=== PATIENT | female | born 1955 | race Caucasian/White ===

== ENCOUNTER 2016-12-29 19:06 | Emergency (ER) | payer MEDICAID ==
[~2016-12-29] VITALS: Ht 160 cm; Wt 96.2 kg
[~2016-12-29 19:06] MED LIST: ACETAMINOPHEN-H1 TA2 PO; ALBUTEROL SULF0.5 ML IH; ALBUTEROL-200 PUFFS/ IH; APAP/BUTALBITAL1 TA1 PO; ASPIR 8181 MG PO; ASPIRIN 325MG325 MG PO; ASPIRIN EC325 M1 PO; BUSPAR 10MG TAB10 MG PO; CEPHALEXIN500 MG PO; CIPRO 500MG TA500 MG PO; COLACE GENERIC100 MG PO; COMBIVENT1 ARO IH; EFFIENT10 M1 PO; FIORICET 325 MG1 TAB PO; FLEXERIL5 MG PO; GABAPENTIN300 MG PO; IMDUR 30MG. TAB30 MG PO; IMDUR120 MG PO; KEFLEX 500MG.500 MG PO; LIPITOR40 MG PO; LIPITOR80 M1 PO; LISINOPRIL10 MG PO; LORTAB 5/500 501 TAB PO; LORTAB 500 MG-71 TAB PO; MEDROL 4MG. DOSE4 MG PO; METOPROLOL SUCC50 M4 PO; METOPROLOL TART50 MG PO; MOTRIN 600MG.600 MG PO; NITROSTAT0.4 MG SL; NORCO 325 MG-51 TAB PO; PERCOCET 325 MG1 TA4 PO; PLAVIX 75MG TAB75 MG PO; PRAVASTATIN40 MG PO; PREDNISONE 20MG20 MG PO; PRILOSEC20 M1 PO; PROZAC20 MG PO; RANEXA1000 MG PO; SYMBICORT1 AE1 IH; TESSALON PERLE100 M1 PO; TORADOL10 M2 PO; TORADOL10 MG PO; TYLENOL W/CODEI1 TA2 PO; ZITHROMAX TRI-500 M1 PO; ZOCOR20 MG PO; [UNRECOGNIZED DRUG - REMARK] OR
[2016-12-29] MEDS ORDERED: ALBUTEROL2.5 MG/NEB INH (19:18)
--- NOTE | 2016-12-29 20:51 | RADIOLOGY REPORT PS360 ---
KNEE-3 VIEWS-LT ORDERING PHYSICIAN : Tristian Rousseau MD PATIENT AGE: 61 years GENDER: Female INDICATION: PAIN- NO INJUR TECHNIQUE: 3 views right knee COMPARISON: FINDINGS No fracture nor dislocation. There is narrowing at the medial compartment reflecting degenerative changes. Mild sclerosis also seen about the slightly narrowed medial compartment. Early marginal osteophyte formation is most evident about the medial compartment as well. There is a small lucent area at the posterior aspect superior patella suspect for a small osteochondral defect.~ 3 mm size estimated.. MRI could further confirm if need be Moderate joint effusion noted at suprapatellar bursa ------ IMPRESSION: ----- [id number] osteoarthritic changes at the medial compartment Joint effusion suprapatella bursa. Also Question small 3 mm chondral defect posterior aspect suprapatella
[2016-12-29] MEDS ORDERED: PREDNISONE 20MG20 MG PO (21:04)
--- NOTE | 2016-12-29 21:05 | Emergency Room Report ---
History of Present Illness Time Seen by [id number] Presenting Problem in Triage Pt arrived:Walked Presenting Problem:Left knee pain that started today. No injury noted. Very tender behind the knee. 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 N Clinical Suspician of Infection? N Mental Status: 1 - Regular (Normal Baseline) Sepsis Risk:Low Sepsis Risk Have you (or family members/close friends) recently traveled outside the [place]? N If Yes, where/when: Have you had exposure to infectious disease within the past month? N TB? Other? Specify: Source patient, RN notes reviewed, old records Exam Limitations no limitations Comment atraumatic lt knee pain which started today with no fever but pain with wt bearing and extension Cardiac Chest Pain Chest pain indicative of cardiac No Timing/Duration this evening Severity moderate ALLERGIES Coded Allergies: No Known Allergies (09/27/16) Home Medications Active Scripts Docusate Sodium (Colace 100MG Cap) 100 MG PO BID #60 CAP Prov: 06/06/16 Prednisone (Prednisone 20MG) 20 MG PO BID #10 TAB Prov: 09/27/16 HYDROCODONE/ACETAMINOPHEN ([place] 5-325 Tablet) 1 TAB PO Q6HP PRN pain #10 TAB Prov: 09/27/16 HYDROCODONE/ACETAMINOPHEN ([place] 5-325 Tablet) 1 TAB PO Q6HP PRN pain #10 TAB Prov: 10/31/16 Reported Medications Lisinopril 10 MG PO DAILY Gabapentin (Gabapentin 300MG) 600 MG PO QHS Fluoxetine Hcl (Prozac) 40 MG PO DAILY Aspirin (Aspirin EC 81MG Tab) 325 MG PO DAILY Isosorbide Mononitrate (Imdur) 150 MG PO DAILY Simvastatin (Zocor) 20 MG PO QHS Buspirone Hcl (Buspar 10MG) 10 MG PO DAILY Albuterol Sulfate (Albuterol Sulfate 0.5 Ml) 0.5 ML IH BID #360 Metoprolol Succinate (Metoprolol Succinate XL) 25 MG PO DAILY #30 ALBUTEROL (Albuterol 0.083% Neb) 2.5 MG INH QID History Medical History General CAD? Yes Angina: Yes [place]: No Hypertension? Yes Hyperlipidemia? Yes CHF? No DVT? No PE? No COPD? Yes Asthma? Yes Anemia? No GERD? Yes Gastric ulcers? No GI Bleed? No Hernia? Yes Thyroid Problems? No Hypothyroidism? No CVA? No Seizures? No Diabetes? No Insulin Dependent: No Insulin Pump: No Home FSBS? No Renal Insuffiency? No End Stage Renal Disease? No UTI? No Stones? No BPH? No GB Disease: No Nephritic Syndrome? No Asplenia? No Hepatitis? No Sickle Cell Disease? No Arthritis? Yes Migraines? Yes Cataracts? No Glaucoma? No MRSA? No HIV? No TB? No Anxiety? Yes Depression? Yes Cancer? No More? 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 Respiratory denies cough, denies shortness of breath, denies wheezing Cardiovascular denies chest pain, denies palpitations, denies syncope Gastrointestinal denies abdominal pain, denies diarrhea, denies vomiting Genitourinary denies: dysuria, frequency, hesitancy, hematuria. Musculoskeletal see HPI, denies back pain, joint pain, joint swelling, denies neck pain Skin denies rash Psychiatric/Neurological denies headache, denies seizure Physical Exam Vital Signs Vital Signs Date Time Temp Pulse Resp B/P Pulse O2 O2 Flow FiO2 Ox Delivery Rate 12/29 1911 99.1 75 18 132/77 95 - WBC >12,000 or <4,000 or 10% bands? 2 or more SIRS Criteria Met? B/P:132/77 MAP:95 Creatinine >2.0? UA output<0.5ml/kg/hr for 2 hrs? Platelet count >100,000? Lactate >2.0mmol/1? INR >1.2 or PTT > than 60 sec? Evidence of Organ Dysfunction? Provider documented clinical suspician of infection? N Sepsis Criteria Count: 0 Sepsis Risk: Low Sepsis Risk General Appearance no apparent distress Eye Exam - bilateral eye PERRL, bilateral eye EOMI Ear, Nose, Throat normal ENT inspection Neck supple Respiratory Status No: respiratory distress. 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 No XRAY/CT/US XRAY/CT/US XRAY knee XR interpretation by reviewed by me Xray Results no fracture seen, abnormal Departure Departure Time of Disposition 2057 Disposition DC Home or Self Care(routine) Clinical Impression Primary Impression: Knee arthropathy Condition STABLE Referrals Bryson Posadas MD Patient Instructions DI for Knee Pain Additional Instructions ice and wt bearing as joaquin and call pcp and ortho for follow up Discharge Counseling Counseled pt/family regarding diagnosis, test results, medications/RX, follow up needs Prescriptions Current Visit Scripts Prednisone (Prednisone 20MG) 20 MG PO BID #10 TAB ED Critical Care Critical Care No at 2104
--- NOTE | 2016-12-29 21:05 | Emergency Room Report ---
History of Present Illness Time Seen by [id number] Presenting Problem in Triage Pt arrived:Walked Presenting Problem:Left knee pain that started today. No injury noted. Very tender behind the knee. 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 N Clinical Suspician of Infection? N Mental Status: 1 - Regular (Normal Baseline) Sepsis Risk:Low Sepsis Risk Have you (or family members/close friends) recently traveled outside the [place]? N If Yes, where/when: Have you had exposure to infectious disease within the past month? N TB? Other? Specify: Source patient, RN notes reviewed, old records Exam Limitations no limitations Comment atraumatic lt knee pain which started today with no fever but pain with wt bearing and extension Cardiac Chest Pain Chest pain indicative of cardiac No Timing/Duration this evening Severity moderate ALLERGIES Coded Allergies: No Known Allergies (09/27/16) Home Medications Active Scripts Docusate Sodium (Colace 100MG Cap) 100 MG PO BID #60 CAP Prov: 06/06/16 Prednisone (Prednisone 20MG) 20 MG PO BID #10 TAB Prov: 09/27/16 HYDROCODONE/ACETAMINOPHEN ([place] 5-325 Tablet) 1 TAB PO Q6HP PRN pain #10 TAB Prov: 09/27/16 HYDROCODONE/ACETAMINOPHEN ([place] 5-325 Tablet) 1 TAB PO Q6HP PRN pain #10 TAB Prov: 10/31/16 Reported Medications Lisinopril 10 MG PO DAILY Gabapentin (Gabapentin 300MG) 600 MG PO QHS Fluoxetine Hcl (Prozac) 40 MG PO DAILY Aspirin (Aspirin EC 81MG Tab) 325 MG PO DAILY Isosorbide Mononitrate (Imdur) 150 MG PO DAILY Simvastatin (Zocor) 20 MG PO QHS Buspirone Hcl (Buspar 10MG) 10 MG PO DAILY Albuterol Sulfate (Albuterol Sulfate 0.5 Ml) 0.5 ML IH BID #360 Metoprolol Succinate (Metoprolol Succinate XL) 25 MG PO DAILY #30 ALBUTEROL (Albuterol 0.083% Neb) 2.5 MG INH QID History Medical History General CAD? Yes Angina: Yes [place]: No Hypertension? Yes Hyperlipidemia? Yes CHF? No DVT? No PE? No COPD? Yes Asthma? Yes Anemia? No GERD? Yes Gastric ulcers? No GI Bleed? No Hernia? Yes Thyroid Problems? No Hypothyroidism? No CVA? No Seizures? No Diabetes? No Insulin Dependent: No Insulin Pump: No Home FSBS? No Renal Insuffiency? No End Stage Renal Disease? No UTI? No Stones? No BPH? No GB Disease: No Nephritic Syndrome? No Asplenia? No Hepatitis? No Sickle Cell Disease? No Arthritis? Yes Migraines? Yes Cataracts? No Glaucoma? No MRSA? No HIV? No TB? No Anxiety? Yes Depression? Yes Cancer? No More? 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 Respiratory denies cough, denies shortness of breath, denies wheezing Cardiovascular denies chest pain, denies palpitations, denies syncope Gastrointestinal denies abdominal pain, denies diarrhea, denies vomiting Genitourinary denies: dysuria, frequency, hesitancy, hematuria. Musculoskeletal see HPI, denies back pain, joint pain, joint swelling, denies neck pain Skin denies rash Psychiatric/Neurological denies headache, denies seizure Physical Exam Vital Signs Vital Signs Date Time Temp Pulse Resp B/P Pulse O2 O2 Flow FiO2 Ox Delivery Rate 12/29 1911 99.1 75 18 132/77 95 - WBC >12,000 or <4,000 or 10% bands? 2 or more SIRS Criteria Met? B/P:132/77 MAP:95 Creatinine >2.0? UA output<0.5ml/kg/hr for 2 hrs? Platelet count >100,000? Lactate >2.0mmol/1? INR >1.2 or PTT > than 60 sec? Evidence of Organ Dysfunction? Provider documented clinical suspician of infection? N Sepsis Criteria Count: 0 Sepsis Risk: Low Sepsis Risk General Appearance no apparent distress Eye Exam - bilateral eye PERRL, bilateral eye EOMI Ear, Nose, Throat normal ENT inspection Neck supple Respiratory Status No: respiratory distress. 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 No XRAY/CT/US XRAY/CT/US XRAY knee XR interpretation by reviewed by me Xray Results no fracture seen, abnormal Departure Departure Time of Disposition 2057 Disposition DC Home or Self Care(routine) Clinical Impression Primary Impression: Knee arthropathy Condition STABLE Referrals Bryson Posadas MD Patient Instructions DI for Knee Pain Additional Instructions ice and wt bearing as joaquin and call pcp and ortho for follow up Discharge Counseling Counseled pt/family regarding diagnosis, test results, medications/RX, follow up needs Prescriptions Current Visit Scripts Prednisone (Prednisone 20MG) 20 MG PO BID #10 TAB ED Critical Care Critical Care No at 2104
[2016-12-29 21:25] VITALS: BP 130/75
[2017-01-15] MEDS ORDERED: ZOFRAN ODT4 MG PO (16:30)
== END 2016-12-29 21:26 | disposition home or self-care (01) ==
LOC: ER 19:06
DX: M12.862 Other specific arthropathies, not elsewhere classified, left knee (principal); I25.10 Atherosclerotic heart disease of native coronary artery without angina pectoris; I10 Essential (primary) hypertension; Z72.0 Tobacco use; K21.9 Gastro-esophageal reflux disease without esophagitis

== ENCOUNTER 2017-03-19 06:59 | Day surgery (SDC) | payer MEDICAID ==
[2017-03-09 12:14] LABS: HEMOGLOBIN 14.3 g/dL (12.2-16.2); LYMPH # 3.3 K/mm3 (0.7-4.5); LYMPH % 36.7 % (10-50.0)
[2017-03-09 14:10] LABS: BUN 24 mg/dL (7-18)
[2017-03-09 14:13] LABS: GFR (ESTIMATED) 64 ML/MIN (59-)
[~2017-03-19] VITALS: Ht 160 cm; Wt 95.3 kg
[~2017-03-19 06:59] MED LIST changes: +ALBUTEROL2.5 MG/NEB INH; +ZOFRAN ODT4 MG PO
--- NOTE | 2017-03-19 08:28 | Operative Note ---
Surgeon/Diagnoses Surgeon/Account Representative(s) Date of procedure: 03/19/17 Surgeon: MD Armaan Alcazar Diagnoses Pre-op diagnosis: History of colon polyps Post-op diagnosis Colon polyps Hemorrhoids Procedure Procedure Procedure: Colonoscopy with polypectomy Indications: DIANA GALVAN is a 62 year-old Female with a history of colon polyps. Findings: Bowel preparation moderate to poor Mild to moderate hemorrhoidal tags and cushions with no thrombosis or active bleeding Sessile 9 mm RIGHT colon polyp (snared) Adjacent polyps at 55 cm Polyp at 50 cm Polyp at 45 cm Pedunculated polyp at 15 cm (snared) Procedure Description: After informed consent was obtained, the patient was taken to the endoscopy suite. Monitored anesthesia care ensued after she was transferred to the LEFT lateral decubitus position. Digital rectal exam revealed some mild to moderate hemorrhoidal tags. The duodenoscope was placed in position. The entire colon was evaluated. Bowel preparation was moderate to poor with large volume irrigation and suctioning used to somewhat improved visualization. A 9 mm sessile polyp of the RIGHT colon was excised by way snare. Adjacent polyps at 55 cm were excised with cold biopsy forceps. A polyp at 50 cm was excised with cold biopsy forceps. A polyp at 45 cm was excised with cold biopsy forceps. A pedunculated polyp at [address] was excised by way of snare. No additional mucosal lesions were noted. Hemorrhoidal cushions were confirmed. No active bleeding or thrombosis was seen. The colonoscope was carefully removed and the patient was transferred to recovery. EBL (ml): 1 Anesthesia: Monitored anesthesia care Complications: No immediate Specimens: Sessile 9 mm RIGHT colon polyp (snared) Adjacent polyps at 55 cm Polyp at 50 cm Polyp at 45 cm Pedunculated polyp at 15 cm (snared) Disposition Disposition: Stable to recovery from where she will be discharged home. She will follow-up in one week. Repeat colonoscopy is pending pathology but will likely be between 1-2 years secondary to size/nature of polyps and moderate to poor bowel preparation. at 0878
[2017-03-19 13:44] VITALS: BP 137/77
--- NOTE | 2017-03-19 13:45 | Anesthesia Record ---
Anesthesia Record Part I Total IV fluids: 700 EBL (ml): 0 Urine Output: 0 B/P: 137/77 % SaO2: 95 Pulse: 83 Resps: 16 Temp: 98 Patient is: Drowsy, Stable Stable to PACU at: 0823 (sds) at 1344
--- NOTE | 2017-03-19 13:45 | Anesthesia Record ---
Anesthesia Record Part II Discharge time: 822 Destination: Same day surgery PACU nurse assessment review? Yes Patient is: Stable Anesthesia complications? No at 1342
== END 2017-03-19 10:00 | disposition home or self-care (01) ==
LOC: SDC 06:59
PROVIDERS: Surgery
PROC: 0DBE8ZX Excision of Large Intestine, Via Natural or Artificial Opening Endoscopic, Diagnostic (ICD-10-PCS; 2017-03-19)
PROC: 0DBF8ZX Excision of Right Large Intestine, Via Natural or Artificial Opening Endoscopic, Diagnostic (ICD-10-PCS; principal; 2017-03-19 07:30)
DX: Z09 Encounter for follow-up examination after completed treatment for conditions other than malignant neoplasm (principal); Z86.010 Personal history of colon polyps; K63.5 Polyp of colon; K64.4 Residual hemorrhoidal skin tags

== ENCOUNTER → 2017-03-22 | Emergency (ER) | payer MEDICAID ==
[~2017-03-22] VITALS: Ht 160 cm; Wt 97.5 kg
[~2017-03-22] MED LIST changes: +ALBUTEROL2.5 MG/NEB IH; -ALBUTEROL2.5 MG/NEB INH
--- NOTE | 2017-03-22 23:29 | Emergency Room Report ---
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 N Clinical Suspician of Infection? N Mental Status: 1 - Regular (Normal Baseline) Sepsis Risk:Low Sepsis Risk Have you (or family members/close friends) recently traveled outside the [place]? N If Yes, where/when: Have you had exposure to infectious disease within the past month? N TB? Other? Specify: Source patient, RN notes reviewed, old records Exam Limitations no limitations Comment recent cataract surg to rt eye and has pain which started today with photophobia Cardiac Chest Pain Chest pain indicative of cardiac No Timing/Duration this evening Severity moderate ALLERGIES Coded Allergies: No Known Allergies (09/27/16) Home Medications Reported Medications Lisinopril 10 MG PO DAILY Gabapentin (Gabapentin 300MG) 600 MG PO QHS Fluoxetine Hcl (Prozac) 40 MG PO DAILY Aspirin (Aspirin EC 81MG Tab) 325 MG PO DAILY Isosorbide Mononitrate (Imdur) 150 MG PO DAILY Simvastatin (Zocor) 20 MG PO QHS Buspirone Hcl (Buspar 10MG) 10 MG PO DAILY Metoprolol Succinate (Metoprolol Succinate XL) 25 MG PO DAILY #30 ALBUTEROL (Albuterol 0.083% Neb) 2.5 MG IH TID History Medical History General CAD? Yes Angina: Yes [place]: No Hypertension? Yes Hyperlipidemia? Yes CHF? No DVT? No PE? No COPD? Yes Asthma? Yes Anemia? No GERD? Yes Gastric ulcers? No GI Bleed? No Hernia? Yes Thyroid Problems? No Hypothyroidism? No CVA? No Seizures? No Diabetes? No Insulin Dependent: No Insulin Pump: No Home FSBS? No Renal Insuffiency? No End Stage Renal Disease? No UTI? No Stones? No BPH? No GB Disease: No Nephritic Syndrome? No Asplenia? No Hepatitis? No Sickle Cell Disease? No Arthritis? Yes Migraines? Yes Cataracts? No Glaucoma? No MRSA? No HIV? No TB? No Anxiety? Yes Depression? Yes Cancer? No More? No Immunization Hx DT/Tetanus 1-4 Years Ago Flu Refused Pneumonia Received In Past Surgical Hx Previous Surgery?Y HYSTERECTOMY LEFT HAND STENT PLACEMENT IN DEC 21 CARDIAC STENTS RIGHT SHOULDER ENDOSCOPY COLONOSCOPY X2 LT SHOULDER CYST REMOVED TO RIGHT NIEVES Family History Family Hx Diabetes Yes CAD No Hypertension No Hyperlipidemia Yes Cancer Yes TB No Social History Smoking Hx Smoker: Current Every Day Smoker Tobacco: Yes Type Cigarettes Packs/day 1 1/2 - 2 Packs Alcohol Alcohol: No Drugs none Review of Systems All Other Systems Reviewed and Negative Constitutional denies fever Eyes see HPI, glasses, other, denies blurred vision, denies contact lenses ENT denies: ear pain, epistaxis, throat pain. Respiratory denies cough, denies wheezing Cardiovascular denies chest pain, denies syncope Gastrointestinal denies abdominal pain, denies diarrhea, denies vomiting Genitourinary denies: dysuria, hematuria. Musculoskeletal denies back pain, denies joint pain, denies joint swelling, denies neck pain Skin denies rash Psychiatric/Neurological headache, denies seizure Physical Exam Vital Signs Vital Signs Date Time Temp Pulse Resp B/P Pulse O2 O2 Flow FiO2 Ox Delivery Rate 03/22 2311 98.0 84 18 144/85 95 - WBC >12,000 or <4,000 or 10% bands? 2 or more SIRS Criteria Met? B/P:144/85 MAP:104 Creatinine >2.0? UA output<0.5ml/kg/hr for 2 hrs? Platelet count >100,000? Lactate >2.0mmol/1? INR >1.2 or PTT > than 60 sec? Evidence of Organ Dysfunction? Provider documented clinical suspician of infection? N Sepsis Criteria Count: 0 Sepsis Risk: Low Sepsis Risk General Appearance no apparent distress Eye Exam - bilateral eye PERRL, bilateral eye EOMI Comment reactive and not red Ear, Nose, Throat normal ENT inspection Respiratory Status No: respiratory distress. 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 No Departure Departure Time of Disposition 7 Disposition DC Home or Self Care(routine) Clinical Impression Primary Impression: Pain, eye, right Condition STABLE Referrals [facility] discussed with dr viveros Patient Instructions DI for Eye Pain Additional Instructions see dr viveros in am Discharge Counseling Counseled pt/family regarding diagnosis, follow up needs ED Critical Care Critical Care No at 2335
[2017-03-22 23:42] VITALS: BP 129/79
--- OUTSIDE RECORDS SUMMARY | 2017-03-22 23:53 | External Medical Summary Rpt ---
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 Z01.810 ENCOUNTER 03-12-2017 FOR PREPROCEDUR AL CARDIOVASCU LAR EXAMINATION 305.1 305.1 12-21-2013 [place] TOBACCO USE [facility] 401.9 401.9 12-21-2013 [place] HYPERTENSIO [facility] N NOS [facility] 413.9 413.9 12-21-2013 [place] ANGINA [facility] NEC/NOS 414.00 414.00 12-21-2013 [place] CORON [facility] ATHEROSCLER [facility] NOS TYPE VESSEL, [place] OR GRAFT 493.90 493.90 12-21-2013 [place] ASTHMA, [facility]PEC[facility]IED [facility] 496 496 CHR 12-21-2013 [place] AIRWAY [facility] OBSTRUCT [facility] NEC 780.97 780.97 12-21-2013 [place] ALTERED [facility] MENTAL [facility] STATUS 272.4 272.4 09-03-2013 [place] HYPERLIPIDE [facility] NEC/NOS Hospital V58.69 V58.69 OTH 09-03-2013 [place] MED,LT,CURR [facility] ENT USE Hospital 843.9 843.9 07-24-2013 [place] [facility] 300.00 300.00 06-20-2013 [place] [facility]Y [facility] 786.50 786.50 06-20-2013 [place] CHEST PAIN [facility] 789.00 789.00 06-04-2013 [place] ABDOMINAL [facility] PAIN, Hospital UNSPECIFIED SITE 346.90 346.90 12-27-2012 [place] MIGRAINE [facility]PEC[facility]IED [facility] W/O INTRACT MGRN W/O STATUS MIGRAINOSUS H57.11 OCULAR PAIN, RIGHT EYE R07.89 OTHER CHEST PAIN R10.31 RIGHT LOWER QUADRANT PAIN Allergies, Adverse Reactions, Alerts Type Allergy to substance Drug Allergy Adverse Reaction to Substance Substance Reaction Severity NO KNOWN ALLERGIES Unknown Unknown No Known Allergies - Unknown Mild Nka Medications Na ND Rx Da Fi Fi Am Da Di Ph RX Ph St me C No te ll ll ou ys ag ar # ys at rm s nt no ma ic us Or Da si cy ia de te s n re d KE 00 11 0 No TO 40 -2 RO 93 0- Lo LA 79 20 ng C 60 13 er 60 1 Ac MG ti /2 ve ML AL SC 00 11 0 No OM 64 -2 ET 11 0- Lo CABALLERO 49 20 ng ZI 53 13 er NE 5 Ac 25 ti ve MG /M L AM PU L TR 00 11 0 No AM 09 -2 AD 30 0- Lo OL 05 20 ng 80 13 er 50 1H MG Ac ti TA ve BL ET TA KE HO ME SO 00 10 0 No DI 40 -2 UM 97 8- Lo 98 20 ng CH 30 13 er LO 9 RI Ac DE ti ve 0. 9% SO RICHELLE TI ON Sa 63 10 0 No li 80 -2 ne 70 6- Lo 10 20 ng Fl 07 13 er us 5 h Ac 10 ti ML ve Sy ri ng e NI 00 10 0 No TR 28 -2 O- 10 6- Lo BI 32 20 ng D 60 13 er 2% 8 Ac OI ti NT ve ME NT SO 00 09 0 No RICHELLE 00 -1 -M 90 5- Lo ED 04 20 ng RO 72 13 er L 2 12 Ac 5 ti MG ve AL KE 00 09 0 No TO 40 -1 RO 93 5- Lo LA 79 20 ng C 50 13 er 30 1 Ac MG ti /M ve L AL AC 51 09 0 No ET 07 -1 AM 90 5- Lo IN 16 20 ng OP 19 13 er HE 9H N Ac W/ ti CO ve DE IN E #3 TA K AC 51 09 0 No ET 07 -1 AM 90 5- Lo IN 16 20 ng OP 19 13 er HE 9H N Ac W/ ti CO ve DE IN E #3 TA K Sa 63 08 1 No li 80 -1 ne 70 1- Lo 10 20 ng Fl 07 13 er us 5 h Ac 10 ti ML ve Sy ri ng e 66 08 0 No PI 55 -1 RI 30 1- Lo N 00 20 ng 32 10 13 er 5 1 MG Ac ti TA ve BL ET NI 00 08 1 No TR 07 -1 OS 10 1- Lo TA 41 20 ng T 81 13 er 0. 3 4 Ac MG ti ve TA BL ET SL Sa 63 08 1 No li 80 -1 ne 70 1- Lo 10 20 ng Fl 07 13 er us 5 h Ac 10 ti ML ve Sy ri ng e Sa 63 07 0 No li 80 -2 ne 70 7- Lo 10 20 ng Fl 07 13 er us 5 h Ac 10 ti ML ve Sy ri ng e Sa 63 07 0 No li 80 -2 ne 70 7- Lo 10 20 ng Fl 07 13 er us 5 h Ac 10 ti ML ve Sy ri ng e Sa 63 04 0 No li 80 -2 ne 70 1- Lo 10 20 ng Fl 07 13 er us 5 h Ac 10 ti ML ve Sy ri ng e NI 59 04 0 No TR 63 -2 OG 00 1- Lo LY 30 20 ng CE 06 13 er RI 5 N Ac 0. ti 4M ve G/ DO SE SP RA Y KE 00 04 0 No TO 40 -2 RO 93 1- Lo LA 79 20 ng C 50 13 er 30 1 Ac MG ti /M ve L AL Sa 63 04 0 No li 80 -2 ne 70 1- Lo 10 20 ng Fl 07 13 er us 5 h Ac 10 ti ML ve Sy ri ng e NI 59 04 0 No TR 63 -2 OG 00 1- Lo LY 30 20 ng CE 06 13 er RI 5 N Ac 0. ti 4M ve G/ DO SE SP RA Y KE 00 02 0 No TO 40 -1 RO 93 8- Lo LA 79 20 ng C 60 13 er 60 1 Ac MG ti /2 ve ML AL SC 00 02 0 No OM 64 -1 ET 11 8- Lo CABALLERO 49 20 ng ZI 53 13 er NE 5 Ac 25 ti ve MG /M L AM PU L Vital Signs 12-21-2013 00:14 Name Value Interpretat Reference Comment ion Range Body 98.5 [degF] Temperature BP 76 mm[Hg] Diastolic BP Systolic 138 mm[Hg] Heart 73 /min Rate/Pulse O2% 93 % Respiratory 20 /min Rate 12-20-2013 23:12 Name Value Interpretat Reference Comment ion Range BP 68 mm[Hg] Diastolic BP Systolic 140 mm[Hg] Heart 73 /min Rate/Pulse O2% 93 % Respiratory 20 /min Rate 09-28-2013 19:33 Name Value Interpretat Reference Comment ion Range BP 59 mm[Hg] Diastolic BP Systolic 110 mm[Hg] Heart 68 /min Rate/Pulse Respiratory 20 /min Rate 09-03-2013 23:43 Name Value Interpretat Reference Comment ion Range BP 64 mm[Hg] Diastolic BP Systolic 158 mm[Hg] Heart 70 /min Rate/Pulse O2% 98 % Respiratory 18 /min Rate 09-03-2013 23:26 Name Value Interpretat Reference Comment ion Range Body 98.1 [degF] Temperature 09-03-2013 22:55 Name Value Interpretat Reference Comment ion Range Body 98.1 [degF] Temperature BP 78 mm[Hg] Diastolic BP Systolic 148 mm[Hg] Heart 74 /min Rate/Pulse Respiratory 18 /min Rate 09-03-2013 22:32 Name Value Interpretat Reference Comment ion Range O2% 100 % 07-24-2013 23:37 Name Value Interpretat Reference Comment ion Range BP 82 mm[Hg] Diastolic BP Systolic 128 mm[Hg] Heart 62 /min Rate/Pulse O2% 98 % Respiratory 20 /min Rate 07-24-2013 22:11 Name Value Interpretat Reference Comment ion Range BP 75 mm[Hg] Diastolic BP Systolic 123 mm[Hg] Heart 78 /min Rate/Pulse O2% 94 % Respiratory 20 /min Rate 06-20-2013 Name Value Interpretat Reference Comment ion Range BP 74 mm[Hg] Diastolic BP Systolic 135 mm[Hg] Heart 62 /min Rate/Pulse O2% 95 % Respiratory 20 /min Rate 06-19-2013 22:24 Name Value Interpretat Reference Comment ion Range BP 67 mm[Hg] Diastolic BP Systolic 123 mm[Hg] Heart 63 /min Rate/Pulse Respiratory 20 /min Rate 06-19-2013 22:18 Name Value Interpretat Reference Comment ion Range O2% 94 % 06-04-2013 17:23 Name Value Interpretat Reference Comment ion Range BP 77 mm[Hg] Diastolic BP Systolic 143 mm[Hg] Heart 67 /min Rate/Pulse O2% 93 % Respiratory 20 /min Rate 06-04-2013 16:04 Name Value Interpretat Reference Comment ion Range BP 82 mm[Hg] Diastolic BP Systolic 126 mm[Hg] Heart 84 /min Rate/Pulse O2% 95 % Respiratory 20 /min Rate 02-27-2013 23:50 Name Value Interpretat Reference Comment ion Range BP 84 mm[Hg] Diastolic BP Systolic 139 mm[Hg] Heart 70 /min Rate/Pulse O2% 97 % Respiratory 20 /min Rate 02-27-2013 23:17 Name Value Interpretat Reference Comment ion Range BP 69 mm[Hg] Diastolic BP Systolic 112 mm[Hg] Heart 78 /min Rate/Pulse O2% 97 % Respiratory 19 /min Rate 12-27-2012 00:17 Name Value Interpretat Reference Comment ion Range Body 98.7 [degF] Temperature BP 58 mm[Hg] Diastolic BP Systolic 113 mm[Hg] Heart 79 /min Rate/Pulse O2% 95 % Respiratory 20 /min Rate Results Labs Lab Lab Date Result Refere Interp Status Commen Order Detail nces retati t Range on URINALYSIS/COMPLETE (12-20-2013 23:45) URINE DK YELLOW complet COLOR 014 YELLOW ed 23:45 URINE SL CLEAR complet APPEARA 014 CLOUDY ed NCE 23:45 URINE NEGATIV NEG complet GLUCOSE 014 E ed - 23:45 DIPSTIC K URINE NEGATIV NEG complet BILIRUB 014 E ed IN - 23:45 DIPSTIC K URINE NEGATIV NEG complet KETONE 014 E mg/dL ed 23:45 URINE 1.025 1.005-1 complet SPECIFI 014 UNK .030 ed C 23:45 GRAVITY URINE NEGATIV NEG complet BLOOD 014 E ed 23:45 URINE 6.0 UNK 5.0-8.5 complet PH 014 ed 23:45 URINE NEGATIV NEG complet PROTEIN 014 E mg/dL ed - 23:45 DIPSTIC K URINE 0.2 NEG complet UROBILI 014 E.U./dL ed NOGEN - 23:45 DIPSTIC K URINE NEGATIV NEG complet NITRATE 014 E ed - 23:45 DIPSTIC K URINE NEGATIV NEG complet LEUK 014 E ed ESTERAS 23:45 E URINE 5-10 0 complet RBC 014 rbc/hpf ed 23:45 URINE 3-5 O complet WBC 014 wbc/hpf ed 23:45 URINE 5-10 0-5 complet SQUAMOU 014 #/hpf ed S CELLS 23:45 URINE 2+ O complet BACTERI 014 ed A 23:45 URINE OCC NONE complet HYALINE 014 #/lpf ed CAST 23:45 COMPREHENSIVE METABOLIC PANEL (12-20-2013 22:35) Glucose 109 74-106 complet 014 mg/dL ed Bld-mCn 22:35 c BUN 23 7-18 complet Bld-mCn 014 mg/dL ed c 22:35 Creat 1.2 0.6-1.0 complet SerPl-m 014 mg/dL ed Cnc 22:35 GFR/BSA 46 59- complet .pred 014 ML/MIN ed SerPl 22:35 Schwart z-vRate Sodium 141 136-145 complet SerPl-s 014 mmoL/L ed Cnc 22:35 Potassi 3.6 3.5-5.1 complet um 014 mmoL/L ed SerPl-s 22:35 Cnc Chlorid 103 98-107 complet e 014 mmoL/L ed SerPl-s 22:35 Cnc CO2 28 21.0-32 complet SerPl-s 014 mmoL/L .0 ed Cnc 22:35 Calcium 8.7 8.5-10. complet 014 mg/dL 1 ed SerPl-m 22:35 Cnc Prot 8.0 6.4-8.2 complet SerPl-m 014 gm/dL ed Cnc 22:35 Albumin 3.5 3.4-5.0 complet 014 gm/dL ed SerPl-m 22:35 Cnc Globuli 4.5 1.3-3.2 complet n 014 gm/dL ed Ser-mCn 22:35 c Albumin 0.8 UNK 1.1-1.8 complet /Glob 014 ed SerPl-m 22:35 Rto Bilirub 0.1 0.2-1.0 complet 014 mg/dL ed SerPl-m 22:35 Cnc AST 13 U/L 15-37 complet SerPl-c 014 ed Cnc 22:35 ALT 19 U/L 12-78 complet SerPl-c 014 ed Cnc 22:35 ALP 173 U/L 50-136 complet SerPl-c 014 ed Cnc 22:35 CBC with AUTO DIFF (12-20-2013 22:35) WBC # 11-2 12.0 4.8-10. complet Bld 014 K/MM3 8 ed Auto 22:35 RBC # 12-20- 4.58 4.2-5.4 complet Bld 014 M/mm3 ed Auto 22:35 Hgb 14.1 12.2-16 complet Bld-mCn 014 g/dL .2 ed c 22:35 Hct Fr 42.1 % 37.0-47 complet Bld 014 .0 ed 22:35 MCV RBC 91.9 fl 82.2-97 complet 014 .8 ed 22:35 MCH RBC 30.7 pg 27-31.2 complet Qn 014 ed Auto 22:35 MEAN 33.4 31.8-35 complet CORPUSC 014 g/dl .4 ed ULAR 22:35 HGB CONC RDW RBC 13.3 % 11.5-17 complet Auto 014 .5 ed 22:35 Platele 344 142-424 complet t Bld 014 K/mm3 ed Ql 22:35 Manual MEAN 7.4 fl 7.4-10. complet PLATELE 014 4 ed T 22:35 VOLUME Granulo 49.6 % 37.0-80 complet cytes 014 .0 ed Fr Bld 22:35 Auto LYMPH % 43.1 % 10-50.0 complet 014 ed 22:35 Monocyt 4.2 % 1.7-9.3 complet es Fr 014 ed Bld 22:35 Auto Eosinop 2.5 % 0.1-12. complet hil Fr 014 0 ed Bld 22:35 Auto Basophi 02-2 0.7 % 0.1-2.0 complet ls Fr 014 ed Bld 22:35 Auto Granulo 12-20-2 6.0 1.8-7.8 complet cytes # 014 K/mm3 ed Bld 22:35 Auto Lymphoc 12-20-2 5.2 0.7-4.5 complet ytes Fr 014 K/mm3 ed Bld 22:35 Auto Monocyt 11-2 0.5 0.1-1.0 complet es # 014 K/mm3 ed Bld 22:35 Auto Eosinop 11-2 0.3 0.0-0.4 complet hil # 014 K/mm3 ed Bld 22:35 Auto Basophi 11-2 0.1 0-0.2 complet ls # 014 K/MM3 ed Bld 22:35 Auto COMPREHENSIVE METABOLIC PANEL (09-03-2013 22:30) Glucose 09-03- 96 74-106 complet 013 mg/dL ed Bld-mCn 22:30 c BUN 09-03-2 18 7-18 complet Bld-mCn 013 mg/dL ed c 22:30 Creat 09-03-2 1.0 0.6-1.0 complet SerPl-m 013 mg/dL ed Cnc 22:30 GFR 09-03- 57 59- complet (ESTIMA 013 ML/MIN ed REAL) 22:30 Sodium 09-03- 139 136-145 complet SerPl-s 013 mmoL/L ed Cnc 22:30 Potassi 09-03-2 3.6 3.5-5.1 complet um 013 mmoL/L ed SerPl-s 22:30 Cnc Chlorid 09-03- 102 98-107 complet e 013 mmoL/L ed SerPl-s 22:30 Cnc CO2 09-03- 28 21.0-32 complet SerPl-s 013 mmoL/L .0 ed Cnc 22:30 Calcium 09-03-2 9.1 8.5-10. complet 013 mg/dL 1 ed SerPl-m 22:30 Cnc Prot 09-03-2 8.4 6.4-8.2 complet SerPl-m 013 gm/dL ed Cnc 22:30 Albumin 09-03-2 3.9 3.4-5.0 complet 013 gm/dL ed SerPl-m 22:30 Cnc Globuli 10-26-2 4.5 1.3-3.2 complet n 013 gm/dL ed Ser-mCn 22:30 c Albumin 09-03-2 0.9 UNK 1.1-1.8 complet /Glob 013 ed SerPl-m 22:30 Rto Bilirub 09-03-2 0.3 0.2-1.0 complet 013 mg/dL ed SerPl-m 22:30 Cnc AST 10-2 18 U/L 15-37 complet SerPl-c 013 ed Cnc 22:30 ALT 10-2 33 U/L 30-65 complet SerPl-c 013 ed Cnc 22:30 ALP 10-2 153 U/L 50-136 complet SerPl-c 013 ed Cnc 22:30 Amylase SerPl-cCnc (09-03-2013 22:30) Amylase 10-2 52 U/L 25-115 complet 013 ed SerPl-c 22:30 Cnc LIPASE (09-03-2013 22:30) LIPASE 10-2 214 U/L 73-393 complet 013 ed 22:30 BNP Bld-mCnc (09-03-2013 22:30) BNP 10-2 27 0-100 complet Bld-mCn 013 pg/mL ed c 22:30 CBC with AUTO DIFF (09-03-2013 22:30) WBC # 10--2 14.3 4.8-10. complet Bld 013 K/MM3 8 ed Auto 22:30 RBC # 10-2 4.47 4.2-5.4 complet Bld 013 M/mm3 ed Auto 22:30 Hgb 10--2 14.2 12.2-16 complet Bld-mCn 013 g/dL .2 ed c 22:30 Hct Fr 10-2 43.1 % 37.0-47 complet Bld 013 .0 ed 22:30 MCV RBC 10-2 96.4 fl 82.2-97 complet 013 .8 ed 22:30 MCH RBC 10-2 31.7 pg 27-31.2 complet Qn 013 ed Auto 22:30 MEAN 10--2 32.9 31.8-35 complet CORPUSC 013 g/dl .4 ed ULAR 22:30 HGB CONC RDW RBC 10-26-2 15.0 % 11.5-17 complet Auto 013 .5 ed 22:30 Platele 10-26-2 343 142-424 complet t Bld 013 K/mm3 ed Ql 22:30 Manual MEAN 10-26-2 7.3 fl 7.4-10. complet PLATELE 013 4 ed T 22:30 VOLUME Granulo 10-26-2 61.0 % 37.0-80 complet cytes 013 .0 ed Fr Bld 22:30 Auto LYMPH % 10-26-2 33.1 % 10-50.0 complet 013 ed 22:30 Monocyt 10-26-2 3.7 % 1.7-9.3 complet es Fr 013 ed Bld 22:30 Auto Eosinop 10-26-2 1.7 % 0.1-12. complet hil Fr 013 0 ed Bld 22:30 Auto Basophi 10-26-2 0.4 % 0.1-2.0 complet ls Fr 013 ed Bld 22:30 Auto Granulo 10-26-2 8.8 1.8-7.8 complet cytes # 013 K/mm3 ed Bld 22:30 Auto Lymphoc 10-26-2 4.8 0.7-4.5 complet ytes Fr 013 K/mm3 ed Bld 22:30 Auto Monocyt 10-26-2 0.5 0.1-1.0 complet es # 013 K/mm3 ed Bld 22:30 Auto Eosinop 10-26-2 0.3 0.0-0.4 complet hil # 013 K/mm3 ed Bld 22:30 Auto Basophi 10-26-2 0.1 0-0.2 complet ls # 013 K/MM3 ed Bld 22:30 Auto COMPREHENSIVE METABOLIC PANEL (07-24-2013 21:52) Glucose 07-24- 98 74-106 complet 013 mg/dL ed Bld-mCn 21:52 c BUN 07-24- 15 7-18 complet Bld-mCn 013 mg/dL ed c 21:52 Creat 0.9 0.6-1.0 complet SerPl-m 013 mg/dL ed Cnc 21:52 GFR 65 59- complet (ESTIMA 013 ML/MIN ed REAL) 21:52 Sodium 141 136-145 complet SerPl-s 013 mmoL/L ed Cnc 21:52 Potassi 07-24-2 3.9 3.5-5.1 complet um 013 mmoL/L ed SerPl-s 21:52 Cnc Chlorid 07-24- 105 98-107 complet e 013 mmoL/L ed SerPl-s 21:52 Cnc CO2 07-24- 28 21.0-32 complet SerPl-s 013 mmoL/L .0 ed Cnc 21:52 Calcium 07-24-2 8.6 8.5-10. complet 013 mg/dL 1 ed SerPl-m 21:52 Cnc Prot 07-24-2 7.7 6.4-8.2 complet SerPl-m 013 gm/dL ed Cnc 21:52 Albumin 07-24-2 3.3 3.4-5.0 complet 013 gm/dL ed SerPl-m 21:52 Cnc Globuli 07-24-2 4.4 1.3-3.2 complet n 013 gm/dL ed Ser-mCn 21:52 c Albumin 07-24-2 0.8 UNK 1.1-1.8 complet /Glob 013 ed SerPl-m 21:52 Rto Bilirub 07-24-2 0.3 0.2-1.0 complet 013 mg/dL ed SerPl-m 21:52 Cnc AST 07-24-2 18 U/L 15-37 complet SerPl-c 013 ed Cnc 21:52 ALT 07-24-2 30 U/L 30-65 complet SerPl-c 013 ed Cnc 21:52 ALP 07-24- 148 U/L 50-136 complet SerPl-c 013 ed Cnc 21:52 CBC with AUTO DIFF (07-24-2013 21:52) WBC # 07-24-2 12.1 4.8-10. complet Bld 013 K/MM3 8 ed Auto 21:52 RBC # 15-2 4.29 4.2-5.4 complet Bld 013 M/mm3 ed Auto 21:52 Hgb 07-24-2 13.5 12.2-16 complet Bld-mCn 013 g/dL .2 ed c 21:52 Hct Fr 07-24- 40.2 % 37.0-47 complet Bld 013 .0 ed 21:52 MCV RBC 07-24- 93.9 fl 82.2-97 complet 013 .8 ed 21:52 MCH RBC 09-15-2 31.5 pg 27-31.2 complet Qn 013 ed Auto 21:52 MEAN 09-15-2 33.5 31.8-35 complet CORPUSC 013 g/dl .4 ed ULAR 21:52 HGB CONC RDW RBC 09-15-2 15.1 % 11.5-17 complet Auto 013 .5 ed 21:52 Platele 09-15-2 297 142-424 complet t Bld 013 K/mm3 ed Ql 21:52 Manual MEAN 09-15-2 7.3 fl 7.4-10. complet PLATELE 013 4 ed T 21:52 VOLUME Granulo 09-15-2 64.8 % 37.0-80 complet cytes 013 .0 ed Fr Bld 21:52 Auto LYMPH % 09-15-2 27.6 % 10-50.0 complet 013 ed 21:52 Monocyt 09-15-2 5.1 % 1.7-9.3 complet es Fr 013 ed Bld 21:52 Auto Eosinop 09-15-2 2.0 % 0.1-12. complet hil Fr 013 0 ed Bld 21:52 Auto Basophi 09-15-2 0.5 % 0.1-2.0 complet ls Fr 013 ed Bld 21:52 Auto Granulo 09-15-2 7.9 1.8-7.8 complet cytes # 013 K/mm3 ed Bld 21:52 Auto Lymphoc 09-15-2 3.3 0.7-4.5 complet ytes Fr 013 K/mm3 ed Bld 21:52 Auto Monocyt 09-15-2 0.6 0.1-1.0 complet es # 013 K/mm3 ed Bld 21:52 Auto Eosinop 09-15-2 0.2 0.0-0.4 complet hil # 013 K/mm3 ed Bld 21:52 Auto Basophi 09-15-2 0.1 0-0.2 complet ls # 013 K/MM3 ed Bld 21:52 Auto COMPREHENSIVE METABOLIC PANEL (06-19-2013 22:00) Glucose 06-19- 87 74-106 complet 013 mg/dL ed Bld-mCn 22:00 c BUN 06-19- 18 7-18 complet Bld-mCn 013 mg/dL ed c 22:00 Creat 08-2 1.0 0.6-1.0 complet SerPl-m 013 mg/dL ed Cnc 22:00 ESTIMAT 100 50-200 complet ED 013 ML/MIN ed CREATIN 22:00 INE CLEARAN CE GFR 57 59- complet (ESTIMA 013 ML/MIN ed REAL) 22:00 Sodium 140 136-145 complet SerPl-s 013 mmoL/L ed Cnc 22:00 Potassi 3.7 3.5-5.1 complet um 013 mmoL/L ed SerPl-s 22:00 Cnc Chlorid 103 98-107 complet e 013 mmoL/L ed SerPl-s 22:00 Cnc CO2 26 21.0-32 complet SerPl-s 013 mmoL/L .0 ed Cnc 22:00 Calcium 8.7 8.5-10. complet 013 mg/dL 1 ed SerPl-m 22:00 Cnc Prot 8.1 6.4-8.2 complet SerPl-m 013 gm/dL ed Cnc 22:00 Albumin 3.7 3.4-5.0 complet 013 gm/dL ed SerPl-m 22:00 Cnc Globuli 4.4 1.3-3.2 complet n 013 gm/dL ed Ser-mCn 22:00 c Albumin 0.8 UNK 1.1-1.8 complet /Glob 013 ed SerPl-m 22:00 Rto Bilirub 0.4 0.2-1.0 complet 013 mg/dL ed SerPl-m 22:00 Cnc AST 16 U/L 15-37 complet SerPl-c 013 ed Cnc 22:00 ALT 32 U/L 30-65 complet SerPl-c 013 ed Cnc 22:00 ALP 146 U/L 50-136 complet SerPl-c 013 ed Cnc 22:00 CBC with AUTO DIFF (06-19-2013 22:00) WBC # 11-2 11.5 4.8-10. complet Bld 013 K/MM3 8 ed Auto 22:00 RBC # 11-2 4.51 4.2-5.4 complet Bld 013 M/mm3 ed Auto 22:00 Hgb 08-11-2 13.9 12.2-16 complet Bld-mCn 013 g/dL .2 ed c 22:00 Hct Fr 06-19-2 41.7 % 37.0-47 complet Bld 013 .0 ed 22:00 MCV RBC 0811-2 92.4 fl 82.2-97 complet 013 .8 ed 22:00 MCH RBC 11-2 30.9 pg 27-31.2 complet Qn 013 ed Auto 22:00 MEAN 08-11-2 33.5 31.8-35 complet CORPUSC 013 g/dl .4 ed ULAR 22:00 HGB CONC RDW RBC 11-2 13.8 % 11.5-17 complet Auto 013 .5 ed 22:00 Platele -11-2 326 142-424 complet t Bld 013 K/mm3 ed Ql 22:00 Manual MEAN 7.0 fl 7.4-10. complet PLATELE 013 4 ed T 22:00 VOLUME Granulo --2 47.4 % 37.0-80 complet cytes 013 .0 ed Fr Bld 22:00 Auto LYMPH % 08-11-2 44.8 % 10-50.0 complet 013 ed 22:00 Monocyt -11-2 5.2 % 1.7-9.3 complet es Fr 013 ed Bld 22:00 Auto Eosinop -11-2 2.1 % 0.1-12. complet hil Fr 013 0 ed Bld 22:00 Auto Basophi -11-2 0.6 % 0.1-2.0 complet ls Fr 013 ed Bld 22:00 Auto Granulo 08-11-2 5.4 1.8-7.8 complet cytes # 013 K/mm3 ed Bld 22:00 Auto Lymphoc 08-11-2 5.1 0.7-4.5 complet ytes Fr 013 K/mm3 ed Bld 22:00 Auto Monocyt 08-11-2 0.6 0.1-1.0 complet es # 013 K/mm3 ed Bld 22:00 Auto Eosinop 08-11-2 0.2 0.0-0.4 complet hil # 013 K/mm3 ed Bld 22:00 Auto Basophi 08-11-2 0.1 0-0.2 complet ls # 013 K/MM3 ed Bld 22:00 Auto COMPREHENSIVE METABOLIC PANEL (06-04-2013 15:55) Glucose 94 74-106 complet 013 mg/dL ed Bld-mCn 15:55 c BUN 15 7-18 complet Bld-mCn 013 mg/dL ed c 15:55 Creat 0.9 0.6-1.0 complet SerPl-m 013 mg/dL ed Cnc 15:55 ESTIMAT 110 50-200 complet ED 013 ML/MIN ed CREATIN 15:55 INE CLEARAN CE GFR 65 59- complet (ESTIMA 013 ML/MIN ed REAL) 15:55 Sodium 138 136-145 complet SerPl-s 013 mmoL/L ed Cnc 15:55 Potassi 4.0 3.5-5.1 complet um 013 mmoL/L ed SerPl-s 15:55 Cnc Chlorid 101 98-107 complet e 013 mmoL/L ed SerPl-s 15:55 Cnc CO2 27 21.0-32 complet SerPl-s 013 mmoL/L .0 ed Cnc 15:55 Calcium 9.0 8.5-10. complet 013 mg/dL 1 ed SerPl-m 15:55 Cnc Prot 8.4 6.4-8.2 complet SerPl-m 013 gm/dL ed Cnc 15:55 Albumin 3.8 3.4-5.0 complet 013 gm/dL ed SerPl-m 15:55 Cnc Globuli 2 4.6 1.3-3.2 complet n 013 gm/dL ed Ser-mCn 15:55 c Albumin 2 0.8 UNK 1.1-1.8 complet /Glob 013 ed SerPl-m 15:55 Rto Bilirub 2 0.4 0.2-1.0 complet 013 mg/dL ed SerPl-m 15:55 Cnc AST 15 U/L 15-37 complet SerPl-c 013 ed Cnc 15:55 ALT 07-27-2 35 U/L 30-65 complet SerPl-c 013 ed Cnc 15:55 ALP 06-04-2 164 U/L 50-136 complet SerPl-c 013 ed Cnc 15:55 LIPASE (06-04-2013 15:55) LIPASE 112 U/L 73-393 complet 013 ed 15:55 CBC with AUTO DIFF (06-04-2013 15:55) WBC # 06-04-2 11.1 4.8-10. complet Bld 013 K/MM3 8 ed Auto 15:55 RBC # 06-04-2 4.87 4.2-5.4 complet Bld 013 M/mm3 ed Auto 15:55 Hgb 06-04-2 14.9 12.2-16 complet Bld-mCn 013 g/dL .2 ed c 15:55 Hct Fr 2 45.4 % 37.0-47 complet Bld 013 .0 ed 15:55 MCV RBC 93.2 fl 82.2-97 complet 013 .8 ed 15:55 MCH RBC 2 30.6 pg 27-31.2 complet Qn 013 ed Auto 15:55 MEAN 32.9 31.8-35 complet CORPUSC 013 g/dl .4 ed ULAR 15:55 HGB CONC RDW RBC 06-04-2 13.7 % 11.5-17 complet Auto 013 .5 ed 15:55 Platele 06-04-2 376 142-424 complet t Bld 013 K/mm3 ed Ql 15:55 Manual MEAN 2 7.3 fl 7.4-10. complet PLATELE 013 4 ed T 15:55 VOLUME Granulo 06-04-2 53.9 % 37.0-80 complet cytes 013 .0 ed Fr Bld 15:55 Auto LYMPH % 06-04-2 39.6 % 10-50.0 complet 013 ed 15:55 Monocyt 06-04-2 3.3 % 1.7-9.3 complet es Fr 013 ed Bld 15:55 Auto Eosinop 06-04-2 2.5 % 0.1-12. complet hil Fr 013 0 ed Bld 15:55 Auto Basophi 06-04-2 0.6 % 0.1-2.0 complet ls Fr 013 ed Bld 15:55 Auto Granulo 06-04-2 6.0 1.8-7.8 complet cytes # 013 K/mm3 ed Bld 15:55 Auto Lymphoc 06-04-2 4.4 0.7-4.5 complet ytes Fr 013 K/mm3 ed Bld 15:55 Auto Monocyt 06-04-2 0.4 0.1-1.0 complet es # 013 K/mm3 ed Bld 15:55 Auto Eosinop 06-04-2 0.3 0.0-0.4 complet hil # 013 K/mm3 ed Bld 15:55 Auto Basophi 06-04-2 0.1 0-0.2 complet ls # 013 K/MM3 ed Bld 15:55 Auto URINALYSIS/COMPLETE (06-04-2013 15:30) URINE 2 YELLOW YELLOW complet COLOR 013 ed 15:30 URINE 06-04-2 Sl CLEAR complet APPEARA 013 Cloudy ed NCE 15:30 URINE 2 NEGATIV NEG complet GLUCOSE 013 E ed - 15:30 DIPSTIC K URINE 06-04-2 NEGATIV NEG complet BILIRUB 013 E ed IN - 15:30 DIPSTIC K URINE 06-04-2 NEGATIV NEG complet KETONE 013 E mg/dL ed 15:30 URINE 06-04-2 Less 1.005-1 complet SPECIFI 013 than or .030 ed C 15:30 equal GRAVITY to 1.005 URINE 06-04-2 TRACE-I NEG complet BLOOD 013 NTACT ed 15:30 URINE 06-04-2 7.0 UNK 5.0-8.5 complet PH 013 ed 15:30 URINE 06-04-2 NEGATIV NEG complet PROTEIN 013 E mg/dL ed - 15:30 DIPSTIC K URINE 06-04-2 0.2 NEG complet UROBILI 013 E.U./dL ed NOGEN - 15:30 DIPSTIC K URINE 06-04-2 NEGATIV NEG complet NITRATE 013 E ed - 15:30 DIPSTIC K URINE 06-04-2 NEGATIV NEG complet LEUK 013 E ed ESTERAS 15:30 E URINE 06-04-2 3-5 0-5 complet SQUAMOU 013 #/hpf ed S CELLS 15:30 URINE 06-04-2 TRACE O complet BACTERI 013 ed A 15:30 COMPREHENSIVE METABOLIC PANEL (02-27-2013 22:29) Glucose 124 74-106 complet 013 mg/dL ed Bld-mCn 22:29 c BUN 19 7-18 complet Bld-mCn 013 mg/dL ed c 22:29 Creat 1.1 0.6-1.0 complet SerPl-m 013 mg/dL ed Cnc 22:29 ESTIMAT 91 50-200 complet ED 013 ML/MIN ed CREATIN 22:29 INE CLEARAN CE GFR 52 59- complet (ESTIMA 013 ML/MIN ed REAL) 22:29 Sodium 140 136-145 complet SerPl-s 013 mmoL/L ed Cnc 22:29 Potassi 3.6 3.5-5.1 complet um 013 mmoL/L ed SerPl-s 22:29 Cnc Chlorid 105 98-107 complet e 013 mmoL/L ed SerPl-s 22:29 Cnc CO2 27 21.0-32 complet SerPl-s 013 mmoL/L .0 ed Cnc 22:29 Calcium 8.6 8.5-10. complet 013 mg/dL 1 ed SerPl-m 22:29 Cnc Prot 7.2 6.4-8.2 complet SerPl-m 013 gm/dL ed Cnc 22:29 Albumin 3.5 3.4-5.0 complet 013 gm/dL ed SerPl-m 22:29 Cnc Globuli 3.7 1.3-3.2 complet n 013 gm/dL ed Ser-mCn 22:29 c Albumin 0.9 UNK 1.1-1.8 complet /Glob 013 ed SerPl-m 22:29 Rto Bilirub 0.2 0.2-1.0 complet 013 mg/dL ed SerPl-m 22:29 Cnc AST 17 U/L 15-37 complet SerPl-c 013 ed Cnc 22:29 ALT 28 U/L 30-65 complet SerPl-c 013 ed Cnc 22:29 ALP 154 U/L 50-136 complet SerPl-c 013 ed Cnc 22:29 CBC with AUTO DIFF (02-27-2013 22:29) WBC # 21-2 11.9 4.8-10. complet Bld 013 K/MM3 8 ed Auto 22:29 RBC # 02-27-2 4.37 4.2-5.4 complet Bld 013 M/mm3 ed Auto 22:29 Hgb 02-27-2 13.6 12.2-16 complet Bld-mCn 013 g/dL .2 ed c 22:29 Hct Fr 02-27-2 41.7 % 37.0-47 complet Bld 013 .0 ed 22:29 MCV RBC 02-27-2 95.6 fl 82.2-97 complet 013 .8 ed 22:29 MCH RBC 02-27-2 31.2 pg 27-31.2 complet Qn 013 ed Auto 22:29 MEAN 02-27-2 32.6 31.8-35 complet CORPUSC 013 g/dl .4 ed ULAR 22:29 HGB CONC RDW RBC 02-27-2 13.4 % 11.5-17 complet Auto 013 .5 ed 22:29 Platele --2 337 142-424 complet t Bld 013 K/mm3 ed Ql 22:29 Manual MEAN 2 7.3 fl 7.4-10. complet PLATELE 013 4 ed T 22:29 VOLUME Granulo 02-27-2 48.3 % 37.0-80 complet cytes 013 .0 ed Fr Bld 22:29 Auto LYMPH % --2 43.4 % 10-50.0 complet 013 ed 22:29 Monocyt 02-27-2 4.6 % 1.7-9.3 complet es Fr 013 ed Bld 22:29 Auto Eosinop --2 3.0 % 0.1-12. complet hil Fr 013 0 ed Bld 22:29 Auto Basophi --2 0.7 % 0.1-2.0 complet ls Fr 013 ed Bld 22:29 Auto Granulo -21-2 5.8 1.8-7.8 complet cytes # 013 K/mm3 ed Bld 22:29 Auto Lymphoc -21-2 5.2 0.7-4.5 complet ytes Fr 013 K/mm3 ed Bld 22:29 Auto Monocyt 04-21-2 0.6 0.1-1.0 complet es # 013 K/mm3 ed Bld 22:29 Auto Eosinop 02-27-2 0.4 0.0-0.4 complet hil # 013 K/mm3 ed Bld 22:29 Auto Basophi 02-27-2 0.1 0-0.2 complet ls # 013 K/MM3 ed Bld 22:29 Auto Encounters Encounter Start End Date Code Location Performer Type Date Emergency OSEAS Mcarthur MD (ER) 4 22:41 4 00:14 [facility] Emergency OSEAS Mcarthur MD (ER) 3 18:57 3 19:34 [facility] Emergency OSEAS Mcarthur MD (ER) 3 22:30 3 23:45 [facility] Emergency OSEAS Mcarthur MD (ER) 3 21:27 3 23:38 [facility] Emergency OSEAS RAMIREZ (ER) 3 22:16 3 [facility] [place] Emergency OSEAS Hobbs (ER) 3 15:41 3 17:24 [facility] Emergency OSEAS Mcarthur MD (ER) 3 22:31 3 23:50 [facility] Emergency OSEAS Rader (ER) 3 00:01 3 00:20 [facility]
--- OUTSIDE RECORDS SUMMARY | 2017-03-22 23:53 | External Medical Summary Rpt ---
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 Z01.810 ENCOUNTER 03-12-2017 FOR PREPROCEDUR AL CARDIOVASCU LAR EXAMINATION 305.1 305.1 12-21-2013 [place] TOBACCO USE [facility] DISORDER Hospital 401.9 401.9 12-21-2013 [place] HYPERTENSIO [facility] N NOS Hospital 413.9 413.9 12-21-2013 [place] ANGINA [facility] PECTORIS Hospital NEC/NOS 414.00 414.00 12-21-2013 [place] CORON [facility] ATHEROSCLER Hospital NOS TYPE VESSEL, [place] OR GRAFT 493.90 493.90 12-21-2013 [place] ASTHMA, [facility] UNSPECIFIED Hospital 496 496 CHR 12-21-2013 [place] AIRWAY [facility] OBSTRUCT Hospital NEC 780.97 780.97 12-21-2013 [place] ALTERED [facility] MENTAL [facility] STATUS 272.4 272.4 09-03-2013 [place] HYPERLIPIDE [facility] NEC/NOS Hospital V58.69 V58.69 OTH 09-03-2013 [place]iel MED,LT,CURR [facility] ENT USE Hospital 843.9 843.9 07-24-2013 [place] [facility] 300.00 300.00 06-20-2013 [place] [facility] 786.50 786.50 06-20-2013 [place] CHEST PAIN [facility] 789.00 789.00 06-04-2013 [place] ABDOMINAL [facility] PAIN, Hospital UNSPECIFIED SITE 346.90 346.90 12-27-2012 [place] MIGRAINE [facility] UNSPECIFIED Hospital W/O INTRACT MGRN W/O STATUS [...] Ac MG ti /2 ve ML AL W[place] 00 11 0 No OM 64 -2 [...] Ac MG ti /2 ve ML AL W[place] 00 02 0 No OM 64 -1 [...] Mcarthur MD (ER) 4 22:41 4 00:14 [facility] OSEAS Mcarthur MD (ER) 3 18:57 3 19:34 [facility] OSEAS Mcarthur MD (ER) 3 22:30 3 23:45 [facility] Emergency OSEAS Mcarthur MD (ER) 3 21:27 3 23:38 [facility] OSEAS RAMIREZ (ER) 3 22:16 3 [facility] [place] Emergency OSEAS Hobbs (ER) 3 15:41 3 17:24 [facility] E. Emergency OSEAS Mcarthur MD (ER) 3 22:31 3 23:50 [facility] Emergency OSEAS Rader (ER) 3 00:01 3 00:20 [facility]
--- OUTSIDE RECORDS SUMMARY | 2017-03-22 23:54 | External Medical Summary Rpt ---
Author Author MICHAEL Fernandez, MICHAEL Fernandez Organization [employer] Address Unknown Phone Unavailable
--- OUTSIDE RECORDS SUMMARY | 2017-03-22 23:54 | External Medical Summary Rpt ---
Author Author [employer] Organization [employer] Address Unknown Phone Unavailable Purpose Continuity of Care Document - through 2016
--- OUTSIDE RECORDS SUMMARY | 2017-03-22 23:54 | External Medical Summary Rpt ---
Demographics Preferred Language Citizen Of [place] Marital Status Unknown Tenriism Affiliation Unknown Race Unknown Ethnic Group Unknown Author Author , Organization [employer] Address Unknown Phone Unavailable Purpose Continuity of Care Document - through 2016 Immunization No patient found.
--- OUTSIDE RECORDS SUMMARY | 2017-03-22 23:54 | External Medical Summary Rpt ---
Demographics Preferred Language [place] Marital Status Unknown Christian Affiliation Unknown Race Unknown Ethnic Group Unknown Author Author , Organization [employer] Address Unknown Phone Unavailable Purpose Continuity of Care Document - through 2016 Immunization No patient found.
== END ==
LOC: ER 23:05
DX: H57.11 Ocular pain, right eye (principal)

== ENCOUNTER 2017-09-01 10:16 | Day surgery (SDC) | payer MEDICAID ==
[~2017-09-01 10:16] MED LIST changes: +ALBUTEROL2.5 MG/NEB INH; +FLUOXETINE40 MG PO; +HYDROCODONE/APA1 TA8 PO; +IBUPROFEN800 MG PO; +Isosorbide Mono60 MG PO; +LISINOPRIL2.5 MG PO; +METOPROLOL 25 M25 MG PO; +NEURONTIN600 MG PO; +ZITHROMAX Z-PA250 M2 PO
[2017-09-01 13:38] VITALS: BP 116/71
== END 2017-09-01 13:18 | disposition home or self-care (01) ==
LOC: SDC 10:16
PROVIDERS: Ophthalmology
PROC: 08RK3JZ Replacement of Left Lens with Synthetic Substitute, Percutaneous Approach (ICD-10-PCS; principal; 2017-09-01 13:30)
DX: H26.9 Unspecified cataract (principal)
CPT/HCPCS: V2632

== ENCOUNTER 2017-09-21 12:06 | Emergency (ER) | payer MEDICAID ==
[~2017-09-21] VITALS: Ht 160 cm; Wt 95.7 kg
--- OUTSIDE RECORDS SUMMARY | 2017-09-21 12:14 | External Medical Summary Rpt | CCD ---
Author Author , MICHAEL RODRIGUEZ Address Unknown Phone [email or web address] Team Providers Care Blacksmith Apprentice Name Role Phone Dior ARAUJO Unavailable Unavailable RICH Mcarthur MD, Unavailable Unavailable Drea RAMIREZ MD, Unavailable Unavailable ESTEPHANIA Hobbs Unavailable Unavailable SWETHA CURRAN, Leonard Hobbs III, MD Purpose Continuity of Care Document - 12-27-2012 through 2016 Problems Code Diagnosis DOS Provider Status R06.02 SHORTNESS 08-19-2017 OF BREATH R07.2 PRECORDIAL 08-19-2017 PAIN R73.03 PREDIABETES 05-08-2017 Z01.818 ENCOUNTER 05-08-2017 FOR OTHER PREPROCEDUR AL EXAMINATION Z87.898 PERSONAL 05-08-2017 HISTORY OF OTHER SPECIFIED CONDITIONS R07.9 CHEST PAIN, 05-03-2017 UNSPECIFIED G47.33 OBSTRUCTIVE 03-12-2017 SLEEP APNEA (ADULT) (PEDIATRIC) 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 Z01.810 ENCOUNTER 03-12-2017 FOR PREPROCEDUR AL CARDIOVASCU LAR EXAMINATION 305.1 305.1 12-21-2013 [place] TOBACCO USE [facility] 401.9 401.9 12-21-2013 [place] HYPERTENSIO [facility] N NOS Hospital 413.9 413.9 12-21-2013 [place] ANGINA [facility] PECTORIS Hospital NEC/NOS 414.00 414.00 12-21-2013 [place] CORON [facility] ATHEROSCLER Hospital NOS TYPE VESSEL, [place] OR GRAFT 493.90 493.90 12-21-2013 [place] ASTHMA, [facility] UNSPECIFIED Hospital 496 496 CHR 12-21-2013 [place] AIRWAY [facility] OBSTRUCT Hospital NEC 780.97 780.97 12-21-2013 [place] ALTERED [facility] STATUS 272.4 272.4 09-03-2013 Jaciel HYPERLIPIDE [facility] RACHEAL NEC/NOS Hospital V58.69 V58.69 OTH 09-03-2013 Jaciel HOLDENLT,MISHEL [facility] ENT USE Hospital 843.9 843.9 07-24-2013 Jaciel [facility] 300.00 300.00 06-20-2013 Jaciel ANXIETY [facility] STATE NOS Hospital 786.50 786.50 06-20-2013 Jaciel CHEST PAIN [facility] 789.00 789.00 06-04-2013 [place] ABDOMINAL [facility] PAIN, Hospital UNSPECIFIED SITE 346.90 346.90 12-27-2012 [place] MIGRAINE [facility] UNSPECIFIED Hospital W/O INTRACT MGRN W/O STATUS MIGRAINOSUS H57.11 OCULAR PAIN, RIGHT EYE J20.9 ACUTE BRONCHITIS, UNSPECIFIED R07.89 OTHER CHEST PAIN R10.31 RIGHT LOWER QUADRANT PAIN R10.9 UNSPECIFIED ABDOMINAL PAIN Allergies, Adverse Reactions, Alerts Type Allergy [...] Ac MG ti /2 ve ML AL DC 00 11 0 No OM 64 -2 [...] Ac MG ti /2 ve ML AL DC 00 02 0 No OM 64 -1 [...] Order Detail nces retati t Range on Differential panel, method unspecified - (06-30-2017 00:40) Anisocy 1+ complet tosis 017 ed [Presen 00:40 ce] in Blood Hypochr 1+ complet omia 017 ed [Presen 00:40 ce] in Blood LYMPH 51 % 10% - High complet 017 50% ed 00:40 Platele NORMAL complet ts 017 ed [Presen 00:40 ce] in Blood by Light microsc opy Hgb A1c Bld (05-01-2017 08:50) Comment: The [place] [employer] recommends maintenance of Hemoglobin A1C at 7.0% or lower. Goals for Hemoglobin A1C reduction may need to be modified if hypoglycemia is a problem. Hgb A1c 6.20 % 4.80-5. complet MFr 017 60 ed Bld 08:50 Lipid pnl with direct LDL SerPl (05-01-2017 08:50) Comment: Cholesterol Reference Ranges: Comment: Desirable < 200 mg/dL Comment: Borderline 200-239 mg/dL Comment: High Risk > 239 mg/dL Comment: Comment: Triglyceride Reference Ranges: Comment: Normal < 150 mg/dL Comment: Borderline 150-199 mg/dL Comment: High 200-499 mg/dL Comment: Very High > 499 mg/dL Comment: Comment: HDL Reference Ranges: Comment: Low < 40 mg/dL Comment: High > 59 mg/dL Comment: Comment: LDL Reference Ranges: Comment: Optimal < 100 mg/dL Comment: Near Optimal 100-129 mg/dL Comment: Borderline 130-159 mg/dL Comment: High 160-189 mg/dL Comment: Very High > 189 mg/dL Articho 149 0-130 complet ke IgE 017 mg/dL ed Qn 08:50 HDLc 54 40-60 complet SerPl-m 017 mg/dL ed Cnc 08:50 Trigl 132 0-150 complet SerPl-m 017 mg/dL ed Cnc 08:50 Cholest 214 0-200 complet 017 mg/dL ed SerPl-m 08:50 Cnc URINALYSIS/COMPLETE (12-20-2013 23:45) URINE DK YELLOW complet [...] 014 gm/dL ed SerPl-m 22:35 Cnc Globuli 02-2 4.5 1.3-3.2 complet n 014 gm/dL ed Ser-mCn 22:35 c Albumin 11-2 0.8 UNK 1.1-1.8 complet /Glob 014 ed SerPl-m 22:35 Rto Bilirub 12-20- 0.1 0.2-1.0 complet 014 mg/dL ed SerPl-m 22:35 Cnc AST 12-20- 13 U/L 15-37 complet SerPl-c 014 ed Cnc 22:35 ALT 11-2 19 U/L 12-78 complet SerPl-c 014 ed Cnc 22:35 ALP 2 173 U/L 50-136 complet SerPl-c 014 ed Cnc 22:35 CBC with AUTO DIFF (12-20-2013 22:35) WBC # 02-11-2 12.0 4.8-10. complet Bld 014 K/MM3 8 ed Auto 22:35 RBC # 0211-2 4.58 4.2-5.4 complet Bld 014 M/mm3 ed Auto 22:35 Hgb 11-2 14.1 12.2-16 complet Bld-mCn 014 g/dL .2 ed c 22:35 Hct Fr 42.1 % 37.0-47 complet Bld 014 .0 ed 22:35 MCV RBC 11-2 91.9 fl 82.2-97 complet 014 .8 ed 22:35 MCH RBC 11-2 30.7 pg 27-31.2 complet Qn 014 ed Auto 22:35 MEAN 33.4 31.8-35 complet CORPUSC 014 g/dl .4 ed ULAR 22:35 HGB CONC RDW RBC 11-2 13.3 % 11.5-17 complet Auto 014 .5 ed 22:35 Platele 12-20-2 344 142-424 complet t Bld 014 K/mm3 ed Ql 22:35 Manual MEAN 12-20-2 7.4 fl 7.4-10. complet PLATELE 014 4 ed T 22:35 VOLUME Granulo 49.6 % 37.0-80 complet cytes 014 .0 ed Fr Bld 22:35 Auto LYMPH % 02-11-2 43.1 % 10-50.0 complet 014 ed 22:35 Monocyt 02-11-2 4.2 % 1.7-9.3 complet es Fr 014 ed Bld 22:35 Auto Eosinop 02-11-2 2.5 % 0.1-12. complet hil Fr 014 0 ed Bld 22:35 Auto Basophi 02-11-2 0.7 % 0.1-2.0 complet ls Fr 014 ed Bld 22:35 Auto Granulo 02-11-2 6.0 1.8-7.8 complet cytes # 014 K/mm3 ed Bld 22:35 Auto Lymphoc 02-11-2 5.2 0.7-4.5 complet ytes Fr 014 K/mm3 ed Bld 22:35 Auto Monocyt 02-11-2 0.5 0.1-1.0 complet es # 014 K/mm3 ed Bld 22:35 Auto Eosinop 02-11-2 0.3 0.0-0.4 complet hil # 014 K/mm3 ed Bld 22:35 Auto Basophi 02-11-2 0.1 0-0.2 complet ls # 014 K/MM3 ed Bld 22:35 Auto COMPREHENSIVE METABOLIC PANEL (09-03-2013 22:30) Glucose 09-03- 96 74-106 complet 013 mg/dL ed Bld-mCn 22:30 c BUN 09-03-2 18 7-18 complet Bld-mCn 013 mg/dL ed c 22:30 Creat 09-03-2 1.0 0.6-1.0 complet SerPl-m 013 mg/dL ed Cnc 22:30 GFR 57 59- complet (ESTIMA 013 ML/MIN ed REAL) 22:30 Sodium 09-03- 139 136-145 complet SerPl-s 013 mmoL/L ed Cnc 22:30 Potassi 09-03- 3.6 3.5-5.1 complet um 013 mmoL/L ed SerPl-s 22:30 Cnc Chlorid 09-03- 102 98-107 complet e 013 mmoL/L ed SerPl-s 22:30 Cnc CO2 09-03- 28 21.0-32 complet SerPl-s 013 mmoL/L .0 ed Cnc 22:30 Calcium 2 9.1 8.5-10. complet 013 mg/dL 1 ed SerPl-m 22:30 Cnc Prot 10-2 8.4 6.4-8.2 complet SerPl-m 013 gm/dL ed Cnc 22:30 Albumin 10--2 3.9 3.4-5.0 complet 013 gm/dL ed SerPl-m 22:30 Cnc Globuli 10-2 4.5 1.3-3.2 complet n 013 gm/dL ed Ser-mCn 22:30 c Albumin 09-03-2 0.9 UNK 1.1-1.8 complet /Glob 013 ed SerPl-m 22:30 Rto Bilirub 09-03-2 0.3 0.2-1.0 complet 013 mg/dL ed SerPl-m 22:30 Cnc AST 10-2 18 U/L 15-37 complet SerPl-c 013 ed Cnc 22:30 ALT 09-03-2 33 U/L 30-65 complet SerPl-c 013 ed Cnc 22:30 ALP 09-03-2 153 U/L 50-136 complet SerPl-c 013 ed Cnc 22:30 Amylase SerPl-cCnc (09-03-2013 22:30) Amylase 10-2 52 U/L 25-115 complet 013 ed SerPl-c 22:30 Cnc LIPASE (09-03-2013 22:30) LIPASE 09-03-2 214 U/L 73-393 complet 013 ed 22:30 BNP Bld-mCnc (09-03-2013 22:30) BNP 10-2 27 0-100 complet Bld-mCn 013 pg/mL ed c 22:30 CBC with AUTO DIFF (09-03-2013 22:30) WBC # 10-26-2 14.3 4.8-10. complet Bld 013 K/MM3 8 ed Auto 22:30 RBC # 10-2 4.47 4.2-5.4 complet Bld 013 M/mm3 ed Auto 22:30 Hgb 10--2 14.2 12.2-16 complet Bld-mCn 013 g/dL .2 ed c 22:30 Hct Fr 09-03-2 43.1 % 37.0-47 complet Bld 013 .0 ed 22:30 MCV RBC 09-03-2 96.4 fl 82.2-97 complet 013 .8 ed 22:30 MCH RBC 10-26-2 31.7 pg 27-31.2 complet Qn 013 ed Auto 22:30 MEAN 10-26-2 32.9 31.8-35 complet CORPUSC 013 g/dl .4 [...] Auto COMPREHENSIVE METABOLIC PANEL (07-24-2013 21:52) Glucose 98 74-106 complet 013 mg/dL ed Bld-mCn 21:52 c BUN 15 7-18 complet Bld-mCn 013 mg/dL ed c 21:52 Creat 0.9 0.6-1.0 complet SerPl-m 013 mg/dL ed Cnc 21:52 GFR 07-24- 65 59- complet (ESTIMA 013 ML/MIN ed REAL) 21:52 Sodium 07-24- 141 136-145 complet SerPl-s 013 mmoL/L ed Cnc 21:52 Potassi 07-24- 3.9 3.5-5.1 complet um 013 mmoL/L ed SerPl-s 21:52 Cnc Chlorid 07-24- 105 98-107 complet e 013 mmoL/L ed SerPl-s 21:52 Cnc CO2 07-24- 28 21.0-32 complet SerPl-s 013 mmoL/L .0 ed Cnc 21:52 Calcium 07-24- 8.6 8.5-10. complet 013 mg/dL 1 ed SerPl-m 21:52 Cnc Prot 07-24- 7.7 6.4-8.2 complet SerPl-m 013 gm/dL ed Cnc 21:52 Albumin 07-24- 3.3 3.4-5.0 complet 013 gm/dL ed SerPl-m [...] complet SerPl-c 013 ed Cnc 21:52 ALP 07-24-2 148 U/L 50-136 complet SerPl-c 013 ed Cnc 21:52 CBC with AUTO DIFF (07-24-2013 21:52) WBC # -15-2 12.1 4.8-10. complet Bld 013 K/MM3 8 ed Auto 21:52 RBC # 15-2 4.29 4.2-5.4 complet Bld 013 M/mm3 ed Auto 21:52 Hgb 09-15-2 13.5 12.2-16 complet Bld-mCn 013 g/dL .2 ed c 21:52 Hct Fr 09-15-2 40.2 % 37.0-47 complet Bld 013 .0 ed 21:52 MCV RBC 09-15-2 93.9 fl 82.2-97 complet 013 .8 ed [...] Auto COMPREHENSIVE METABOLIC PANEL (06-19-2013 22:00) Glucose 87 74-106 complet 013 mg/dL ed Bld-mCn 22:00 c BUN 18 7-18 complet Bld-mCn 013 mg/dL ed c 22:00 Creat 1.0 0.6-1.0 complet SerPl-m 013 mg/dL ed [...] 013 mmoL/L .0 ed Cnc 22:00 Calcium 06-19- 8.7 8.5-10. complet 013 mg/dL 1 ed SerPl-m 22:00 Cnc Prot 8.1 6.4-8.2 complet SerPl-m 013 gm/dL ed Cnc 22:00 Albumin 06-19- 3.7 3.4-5.0 complet 013 gm/dL ed SerPl-m 22:00 Cnc Globuli 4.4 1.3-3.2 complet n 013 gm/dL ed Ser-mCn 22:00 c Albumin 0.8 UNK 1.1-1.8 complet /Glob 013 ed SerPl-m 22:00 Rto Bilirub 0.4 0.2-1.0 complet 013 mg/dL ed SerPl-m 22:00 Cnc AST 16 U/L 15-37 complet SerPl-c 013 ed Cnc 22:00 ALT 32 U/L 30-65 complet SerPl-c 013 ed Cnc 22:00 ALP 08-11-2 146 U/L 50-136 complet SerPl-c 013 ed Cnc 22:00 CBC with AUTO DIFF (06-19-2013 22:00) WBC # 08-11-2 11.5 4.8-10. complet Bld 013 K/MM3 8 ed Auto 22:00 RBC # 08-11-2 4.51 4.2-5.4 complet Bld 013 M/mm3 ed Auto 22:00 Hgb 08-11-2 13.9 12.2-16 complet Bld-mCn 013 g/dL .2 ed c 22:00 Hct Fr 06-19-2 41.7 % 37.0-47 complet Bld 013 .0 ed 22:00 MCV RBC 06-19-2 92.4 fl 82.2-97 complet 013 .8 ed 22:00 MCH RBC 06-19-2 30.9 pg 27-31.2 complet Qn 013 ed Auto 22:00 MEAN 06-19- 33.5 31.8-35 complet CORPUSC 013 g/dl .4 ed ULAR 22:00 HGB CONC RDW RBC 06-19-2 13.8 % 11.5-17 complet Auto 013 .5 ed 22:00 Platele 06-19-2 326 142-424 complet t Bld 013 K/mm3 ed Ql 22:00 Manual MEAN 06-19-2 7.0 fl 7.4-10. complet PLATELE 013 4 ed T 22:00 VOLUME Granulo 06-19-2 47.4 % 37.0-80 complet cytes 013 .0 ed Fr Bld 22:00 Auto LYMPH % 11-2 44.8 % 10-50.0 complet 013 ed 22:00 Monocyt -11-2 5.2 % 1.7-9.3 complet es Fr 013 ed Bld 22:00 Auto Eosinop -11-2 2.1 % 0.1-12. complet hil Fr 013 0 ed Bld 22:00 Auto Basophi -11-2 0.6 % 0.1-2.0 complet ls Fr 013 ed Bld 22:00 Auto Granulo 08-11-2 5.4 1.8-7.8 complet cytes # 013 K/mm3 ed Bld 22:00 Auto Lymphoc -11-2 5.1 0.7-4.5 complet ytes Fr 013 K/mm3 ed Bld 22:00 Auto Monocyt 08-11-2 0.6 0.1-1.0 complet es # 013 K/mm3 ed Bld 22:00 Auto Eosinop 08-11-2 0.2 0.0-0.4 complet hil # 013 K/mm3 ed Bld 22:00 Auto Basophi 08-11-2 0.1 0-0.2 complet ls # 013 K/MM3 ed Bld 22:00 Auto COMPREHENSIVE METABOLIC PANEL (06-04-2013 15:55) Glucose 06-04-2 94 74-106 complet 013 mg/dL ed Bld-mCn 15:55 c BUN 06-04-2 15 7-18 complet Bld-mCn 013 mg/dL ed c 15:55 Creat 06-04-2 0.9 0.6-1.0 complet SerPl-m 013 mg/dL ed Cnc 15:55 ESTIMAT 06-04-2 110 50-200 complet ED 013 ML/MIN ed CREATIN 15:55 INE CLEARAN CE GFR 06-04-2 65 59- complet (ESTIMA 013 ML/MIN ed REAL) 15:55 Sodium 06-04-2 138 136-145 complet SerPl-s 013 mmoL/L ed Cnc 15:55 Potassi 06-04-2 4.0 3.5-5.1 complet um 013 mmoL/L ed SerPl-s 15:55 Cnc Chlorid 06-04-2 101 98-107 complet e 013 mmoL/L ed SerPl-s 15:55 Cnc CO2 06-04-2 27 21.0-32 complet SerPl-s 013 mmoL/L .0 ed Cnc 15:55 Calcium 06-04-2 9.0 8.5-10. complet 013 mg/dL 1 ed SerPl-m 15:55 Cnc Prot 06-04-2 8.4 6.4-8.2 complet SerPl-m 013 gm/dL ed Cnc 15:55 Albumin 06-04-2 3.8 3.4-5.0 complet 013 gm/dL ed SerPl-m 15:55 Cnc Globuli 06-04-2 4.6 1.3-3.2 complet n 013 gm/dL ed Ser-mCn 15:55 c Albumin 06-04-2 0.8 UNK 1.1-1.8 complet /Glob 013 ed SerPl-m 15:55 Rto Bilirub 06-04-2 0.4 0.2-1.0 complet 013 mg/dL ed SerPl-m 15:55 Cnc AST 06-04-2 15 U/L 15-37 complet SerPl-c 013 ed Cnc 15:55 ALT 06-04-2 35 U/L 30-65 complet SerPl-c 013 ed Cnc 15:55 ALP 06-04-2 164 U/L 50-136 complet SerPl-c 013 ed Cnc 15:55 LIPASE (06-04-2013 15:55) LIPASE 06-04-2 112 U/L 73-393 complet 013 ed 15:55 CBC with AUTO DIFF (06-04-2013 15:55) WBC # -27-2 11.1 4.8-10. complet Bld 013 K/MM3 8 ed Auto 15:55 RBC # 27-2 4.87 4.2-5.4 complet Bld 013 M/mm3 ed Auto 15:55 Hgb 06-04-2 14.9 12.2-16 complet Bld-mCn 013 g/dL .2 ed c 15:55 Hct Fr 06-04-2 45.4 % 37.0-47 complet Bld 013 .0 ed 15:55 MCV RBC 06-04-2 93.2 fl 82.2-97 complet 013 .8 ed 15:55 MCH RBC 06-04-2 30.6 pg 27-31.2 complet Qn 013 ed Auto 15:55 MEAN -27-2 32.9 31.8-35 complet CORPUSC 013 g/dl .4 ed ULAR 15:55 HGB CONC RDW RBC 06-04-2 13.7 % 11.5-17 complet Auto 013 .5 ed 15:55 Platele -27-2 376 142-424 complet t Bld 013 K/mm3 ed Ql 15:55 Manual MEAN 07-27-2 7.3 fl 7.4-10. complet PLATELE 013 4 ed T 15:55 VOLUME Granulo --2 53.9 % 37.0-80 complet cytes 013 .0 ed Fr Bld 15:55 Auto LYMPH % 07-27-2 39.6 % 10-50.0 complet 013 ed 15:55 Monocyt -27-2 3.3 % 1.7-9.3 complet es Fr 013 ed Bld 15:55 Auto Eosinop 07-27-2 2.5 % 0.1-12. complet hil Fr 013 0 ed Bld 15:55 Auto Basophi 07-27-2 0.6 % 0.1-2.0 complet ls Fr 013 ed Bld 15:55 Auto Granulo 07-27-2 6.0 1.8-7.8 complet cytes # 013 K/mm3 ed Bld 15:55 Auto Lymphoc 07-27-2 4.4 0.7-4.5 complet ytes Fr 013 K/mm3 ed Bld 15:55 Auto Monocyt 07-27-2 0.4 0.1-1.0 complet es # 013 K/mm3 ed Bld 15:55 Auto Eosinop 07-27-2 0.3 0.0-0.4 complet hil # 013 K/mm3 ed Bld 15:55 Auto Basophi 07-27-2 0.1 0-0.2 complet ls # 013 K/MM3 ed Bld 15:55 Auto URINALYSIS/COMPLETE (06-04-2013 15:30) URINE 06-04-2 YELLOW YELLOW complet COLOR 013 ed 15:30 URINE 06-04-2 Sl CLEAR complet APPEARA 013 Cloudy ed NCE 15:30 URINE 06-04-2 NEGATIV NEG complet GLUCOSE 013 E ed [...] mg/dL ed - 15:30 DIPSTIC K URINE 27-2 0.2 NEG complet UROBILI 013 E.U./dL ed NOGEN - 15:30 DIPSTIC K URINE 06-04-2 NEGATIV NEG complet NITRATE 013 E ed - 15:30 DIPSTIC K URINE NEGATIV NEG complet LEUK 013 E ed ESTERAS 15:30 E URINE 3-5 0-5 complet SQUAMOU 013 #/hpf ed S CELLS 15:30 URINE TRACE O complet BACTERI 013 ed A [...] 013 mmoL/L .0 ed Cnc 22:29 Calcium 02-27- 8.6 8.5-10. complet 013 mg/dL 1 ed SerPl-m 22:29 Cnc Prot 2 7.2 6.4-8.2 complet SerPl-m 013 gm/dL ed Cnc 22:29 Albumin 02-27-2 3.5 3.4-5.0 complet 013 gm/dL ed SerPl-m 22:29 Cnc Globuli 02-27-2 3.7 1.3-3.2 complet n 013 gm/dL ed Ser-mCn 22:29 c Albumin 02-27-2 0.9 UNK 1.1-1.8 complet /Glob 013 ed SerPl-m 22:29 Rto Bilirub 02-27-2 0.2 0.2-1.0 complet 013 mg/dL ed SerPl-m 22:29 Cnc AST 02-27-2 17 U/L 15-37 complet SerPl-c 013 ed Cnc 22:29 ALT 02-27-2 28 U/L 30-65 complet SerPl-c 013 ed Cnc 22:29 ALP 02-27-2 154 U/L 50-136 complet SerPl-c 013 ed Cnc 22:29 CBC with AUTO DIFF (02-27-2013 22:29) WBC # --2 11.9 4.8-10. complet Bld 013 K/MM3 8 [...] complet Auto 013 .5 ed 22:29 Platele 02-27-2 337 142-424 complet t Bld 013 K/mm3 ed Ql 22:29 Manual MEAN 02-27-2 7.3 fl 7.4-10. complet PLATELE 013 4 ed T 22:29 VOLUME Granulo 02-27-2 48.3 % 37.0-80 complet cytes 013 .0 ed Fr Bld 22:29 Auto LYMPH % 02-27-2 43.4 % 10-50.0 complet 013 ed 22:29 Monocyt --2 4.6 % 1.7-9.3 complet es Fr 013 ed Bld 22:29 Auto Eosinop 02-27-2 3.0 % 0.1-12. complet hil Fr 013 0 ed Bld 22:29 Auto Basophi 02-27-2 0.7 % 0.1-2.0 complet ls Fr 013 ed Bld 22:29 Auto Granulo 02-27-2 5.8 1.8-7.8 complet cytes # 013 K/mm3 ed Bld 22:29 Auto Lymphoc 02-27-2 5.2 0.7-4.5 complet ytes Fr 013 K/mm3 ed Bld 22:29 Auto Monocyt 02-27-2 0.6 0.1-1.0 complet es # 013 K/mm3 ed Bld 22:29 Auto Eosinop 02-27-2 0.4 0.0-0.4 complet hil # 013 K/mm3 ed Bld 22:29 Auto Basophi 02-27-2 0.1 0-0.2 complet ls # 013 K/MM3 ed Bld 22:29 Auto Encounters Encounter Start End Date Code Location Performer Type Date Emergency OSEAS Mcarthur MD (ER) 4 22:41 4 00:14 [facility] OSEAS Mcarthur MD (ER) 3 18:57 3 19:34 [facility] OSEAS Mcarthur MD (ER) 3 22:30 3 23:45 [facility] OSEAS Mcarthur MD (ER) 3 21:27 3 23:38 [facility] OSEAS RAMIREZ (ER) 3 22:16 3 [facility] Emergency OSEAS Hobbs (ER) 3 15:41 3 17:24 [facility] OSEAS Mcarthur MD (ER) 3 22:31 3 23:50 [facility] OSEAS Rader (ER) 3 00:01 3 00:20 [facility]
--- OUTSIDE RECORDS SUMMARY | 2017-09-21 12:14 | External Medical Summary Rpt | CCD ---
Author Author , MICHAEL RODRIGUEZ Address Unknown Phone [email or web address] Care Team Providers Care Safety Net Maker Name Role Phone Dior RAAUJO Unavailable Unavailable RICH Mcarthur MD, Unavailable Unavailable [...] I25.10 ATHEROSCLER 03-12-2017 OT[facility] HEART DISEASE OF [place] CORONARY ARTERY WITHOUT ANGINA PECTORIS Z01.810 ENCOUNTER 03-12-2017 FOR PREPROCEDUR AL CARDIOVASCU LAR EXAMINATION 305.1 305.1 12-21-2013 [place] TOBACCO USE [facility] 401.9 401.9 12-21-2013 [place] HYPERTENSIO [facility] 413.9 413.9 12-21-2013 [place] ANGINA [facility] NEC/NOS 414.00 414.00 12-21-2013 [place] CORON [facility] NOS TYPE VESSEL, [place] OR GRAFT 493.90 493.90 12-21-2013 [place] ASTHMA, [facility] 496 496 CHR 12-21-2013 [place] AIRWAY [facility] OBSTRUCT [facility] NEC 780.97 780.97 12-21-2013 [place] ALTERED [facility] STATUS 272.4 272.4 09-03-2013 [place] HYPERLIPIDE [facility]NOS [facility] V58.69 V58.69 OTH 09-03-2013 [place] HOLDENLT,MISHEL [facility] ENT USE Hospital 843.9 843.9 07-24-2013 [place] [facility] 300.00 300.00 06-20-2013 [place] ANXIETY [facility] 786.50 786.50 06-20-2013 [place] CHEST PAIN [facility] 789.00 789.00 06-04-2013 [place] ABDOMINAL [facility] PAIN, Hospital UNSPECIFIED SITE 346.90 346.90 12-27-2012 [place] MIGRAINE [facility] W/O INTRACT MGRN W/O [...] Ac MG ti /2 ve ML [place] 00 11 0 No OM 64 -2 [...] Ac MG ti /2 ve ML [place] 00 02 0 No OM 64 -1 [...] Hgb A1c Bld (05-01-2017 08:50) Comment: The [place] [employer] recommends maintenance of Hemoglobin A1C [...] Mcarthur MD (ER) 4 22:41 4 00:14 [facility] OSEAS Mcarthur MD (ER) 3 18:57 3 19:34 [facility] OSEAS Mcarthur MD (ER) 3 22:30 3 23:45 [facility] OSEAS Mcarthur MD (ER) 3 21:27 3 23:38 [facility] OSEAS RAMIREZ (ER) 3 22:16 3 [facility] [place] Emergency OSEAS Hobbs (ER) 3 15:41 3 17:24 [facility] OSEAS Mcarthur MD (ER) 3 22:31 3 23:50 [facility] OSEAS Rader (ER) 3 00:01 3 00:20 [facility]
--- OUTSIDE RECORDS SUMMARY | 2017-09-21 12:15 | External Medical Summary Rpt ---
Author Author MICHAEL Rebecca, MICHAEL [employer] Organization [employer]HAEL [employer] Address Unknown Phone Unavailable Results CBC W Auto Differential panel in Blood Observa Value Referen Units Interpr Notes Date tion ce etation Range Basophils 0 - 0.2 K/MM3 Normal No Jun 30 inform2016 [#/volume on in 12:40 AM ] in source Blood by data Automated count Basophils 0.1 - 2.0 % Normal No Jun 302016 leukocyte on in 12:40 AM s in source Blood by data Automated count Eosinophi 0.0 - 0.4 K/mm3 Normal No Jun 30 ls ati 2016 [#/volume on in 12:40 AM ] in source Blood by data Automated count Eosinophi 0.1 - % Normal No Jun 30 ls/100 12.0 inform2016 leukocyte on in 12:40 AM s in source Blood by data Automated count Granulocy 1.8 - 7.8 K/mm3 Normal No Jun 30 benjy 2016 [#/volume on in 12:40 AM ] in source Blood by data Automated count Granulocy 37.0 - % Normal No Jun 30 benjy/100 80.0 inform2016 leukocyte on in 12:40 AM s in source Blood by data Automated count Hematocri 37.0 - % Normal Jun 30 t [Volume 47.0 ati 2016 on in 12:40 AM Fraction] source of Blood data Hemoglobi 12.2 - g/dL Normal No Jun 30 n 16.2 2016 [Mass/vol on in 12:40 AM ume] in source Blood data Lymphocyt 0.7 - 4.5 K/mm3 High No Jun 30 es 2016 [#/volume on in 12:40 AM ] in source Unspecifi data ed specimen by Automated count Lymphocyt 10 - 50.0 % High No Jun 30 es inform2016 [#/volume on in 12:40 AM ] in source Unspecifi data ed specimen by Automated count Erythrocy 27 - 31.2 pg Normal No Jun 30 te mean 2016 corpuscul on in 12:40 AM ar source hemoglobi data n [Entitic mass] Erythrocy 31.8 - g/dl Normal No Jun 30 te mean 35.4 2016 corpuscul on in 12:40 AM ar source hemoglobi data n concentra tion [Mass/vol ume] by Automated count Erythrocy 82.2 - fl Normal No Jun 30 te mean 97.8 2016 corpuscul on in 12:40 AM ar volume source [Entitic data volume] by Automated count Monocytes 0.1 - 1.0 K/mm3 Normal No Jun 30 inform2016 [#/volume on in 12:40 AM ] in source Blood by data Automated count Monocytes 1.7 - 9.3 % Normal No Jun 30 / inform2016 leukocyte on in 12:40 AM s in source Blood by data Automated count Platelet 7.4 - fl Normal No Jun 30 mean 10.4 2016 volume on in 12:40 AM [Entitic source volume] data in Blood by Automated count Platelets 142 - 424 K/mm3 Normal No Jun 30 inform2016 [#/volume on in 12:40 AM ] in source Blood data Erythrocy 4.2 - 5.4 M/mm3 Normal No Jun 30 benjy inform2016 [#/volume on in 12:40 AM ] in source Amniotic data fluid Erythrocy 11.5 - % Normal No Jun 30 te 17.5 2016 distribut on in 12:40 AM ion width source [Entitic data volume] by Automated count Leukocyte 4.8 - K/MM3 Normal No Jun 30 s 10.8 2016 [#/volume on in 12:40 AM ] in source Blood data Differential panel, method unspecified - Observa Value Referen Units Interpr Notes Date tion ce etation Range Anisocy 1+ No No No No Jun 30 tosis informa informa informa informa 2016 [Presen tion in tion in tion in tion in 12:40 ce] in source source source source AM Blood data data data data Eosinophi 0 - 3 % Normal No Jun 30 ls/100 2016 leukocyte on in 12:40 AM s in source Blood by data Manual count Hypochr 1+ No No No No Jun 30 omia informa informa informa informa 2016 [Presen tion in tion in tion in tion in 12:40 ce] in source source source source AM Blood data data data data LYMPH 51 10 - 50 % High No Jun 30 informa 2016 tion in 12:40 source AM data Platele NORMAL No No No No Jun 30 ts informa informa informa informa 2016 [Presen tion in tion in tion in tion in 12:40 ce] in source source source source AM Blood data data data data by Light microsc opy Neutrophi 42 - 76 % Normal No Jun 30 ls informati 2016 [#/volume on in 12:40 AM ] in source Blood by data Automated count Cells No #CELLS No No Jun 30 Counted informati informati informati 2016 Total [#] on in on in on in 12:40 AM in Blood source source source data data data Comprehensive metabolic 2000 panel in Serum or Plasma Observa Value Referen Units Interpr Notes Date tion ce etation Range Albumin/G 1.1 - 1.8 No Low No Jun 30 lobulin informati informati 2016 [Mass on in on in 12:40 AM ratio] in source source Serum or data data Plasma Albumin 3.4 - 5.0 gm/dL Normal No Jun 30 [Mass/vol informati 2016 ume] in on in 12:40 AM Serum or source Plasma data Alkaline 46 - 116 U/L Normal No Jun 30 phosphata informati 2016 se on in 12:40 AM [Enzymati source c data activity/ volume] in Serum or Plasma Bilirubin 0.2 - 1.0 mg/dL Normal No Jun 30 .total informati 2016 [Mass/vol on in 12:40 AM ume] in source Serum or data Plasma Urea 7 - 18 mg/dL High No Jun 30 nitrogen informati 2016 [Mass/vol on in 12:40 AM ume] in source Serum or data Plasma Calcium 8.5 - mg/dL Normal No Jun 30 [Mass/vol 10.1 informati 2016 ume] in on in 12:40 AM Serum or source Plasma data Chloride 98 - 107 mmoL/L Normal No Jun 30 [Moles/vo informati 2016 lume] in on in 12:40 AM Serum or source Plasma data Carbon 21.0 - mmoL/L Normal No Jun 30 dioxide, 32.0 informati 2016 total on in 12:40 AM [Moles/vo source lume] in data Serum or Plasma Creatinin 0.55 - mg/dL Normal No Jun 30 e 1.02 informati 2016 [Mass/vol on in 12:40 AM ume] in source Serum or data Plasma Creatinin 50 - 200 ML/MIN Normal No Jun 30 e renal informati 2016 clearance on in 12:40 AM source predicted data by Cockcroft -Gault formula Estimated 59- ML/MIN Low REFERENCE Jun 30 RANGE: 2017 glomerula >60 12:40 AM r ML/MIN/1. filtratio 73 SQUARE n rate METERSIf (GF this patient is -A merican, then multiply theresult by 1.210. Globulin 1.3 - 3.2 gm/dL High No Jun 30 [Mass/vol informati 2016 ume] in on in 12:40 AM Serum source data Glucose 74 - 106 mg/dL High No Jun 30 [Mass/vol informati 2016 ume] in on in 12:40 AM Serum or source Plasma data Potassium 3.5 - 5.1 mmoL/L Normal No Jun 30 inform2016 [Moles/vo on in 12:40 AM lume] in source Serum or data Plasma Sodium 136 - 145 mmoL/L Normal No Jun 30 [Moles/vo informati 2016 lume] in on in 12:40 AM Serum or source Plasma data Aspartate 15 - 37 U/L Low No Jun 302016 aminotran on in 12:40 AM sferase source [Enzymati data c activity/ volume] in Serum or Plasma Alanine 12 - 78 U/L Normal No Jun 30 aminotran inform2016 sferase on in 12:40 AM [Enzymati source c data activity/ volume] in Serum or Plasma Protein 6.4 - 8.2 gm/dL Normal No Jun 30 [Mass/vol informati 2016 ume] in on in 12:40 AM Serum or source Plasma data Amylase [Enzymatic activity/volume] in Serum or Plasma Observa Value Referen Units Interpr Notes Date tion ce etation Range Amylase 25 - 115 U/L Normal No Jun 30 [Enzymati informati 2016 c on in 12:40 AM activity/ source volume] data in Serum or Plasma Lipase [Enzymatic activity/volume] in Serum or Plasma Observa Value Referen Units Interpr Notes Date tion ce etation Range Lipase 73 - 393 U/L Normal No Jun 30 [Enzymati informati 2016 c on in 12:40 AM activity/ source volume] data in Serum or Plasma CBC W Auto Differential panel in Blood Observa Value Referen Units Interpr Notes Date tion ce etation Range Basophils 0 - 0.2 K/MM3 Normal No Apr 19 informati 2016 4:15 [#/volume on in PM ] in source Blood by data Automated count Basophils 0.1 - 2.0 % Normal No Apr 19 / informati 2016 4:15 leukocyte on in PM s in source Blood by data Automated count Eosinophi 0.0 - 0.4 K/mm3 Normal No Apr 19 ls informati 2016 4:15 [#/volume on in PM ] in source Blood by data Automated count Eosinophi 0.1 - % Normal No Apr 19 ls/100 12.0 informati 2017 4:15 leukocyte on in PM s in source Blood by data Automated count Granulocy 1.8 - 7.8 K/mm3 Normal No Apr 19 benjy informati 2016 4:15 [#/volume on in PM ] in source Blood by data Automated count Granulocy 37.0 - % Normal No Apr 19 benjy/100 80.0 informati 2016 4:15 leukocyte on in PM s in source Blood by data Automated count Hematocri 37.0 - % Normal No Apr 19 t [Volume 47.0 informati 2016 4:15 on in PM Fraction] source of Blood data Hemoglobi 12.2 - g/dL Normal No Apr 19 n 16.2 informati 2016 4:15 [Mass/vol on in PM ume] in source Blood data Lymphocyt 0.7 - 4.5 K/mm3 Normal No Apr 19 es informati 2016 4:15 [#/volume on in PM ] in source Unspecifi data ed specimen by Automated count Lymphocyt 10 - 50.0 % Normal No Apr 19 es informati 2016 4:15 [#/volume on in PM ] in source Unspecifi data ed specimen by Automated count Erythrocy 27 - 31.2 pg Normal No Apr 19 te mean informati 2016 4:15 corpuscul on in PM ar source hemoglobi data n [Entitic mass] Erythrocy 31.8 - g/dl Normal No Apr 19 te mean 35.4 informati 2016 4:15 corpuscul on in PM ar source hemoglobi data n concentra tion [Mass/vol ume] by Automated count Erythrocy 82.2 - fl Normal No Apr 19 te mean 97.8 informati 2016 4:15 corpuscul on in PM ar volume source [Entitic data volume] by Automated count Monocytes 0.1 - 1.0 K/mm3 Normal No Apr 19 informati 2016 4:15 [#/volume on in PM ] in source Blood by data Automated count Monocytes 1.7 - 9.3 % Normal No Apr 11 /100 informati 2017 4:15 leukocyte on in PM s in source Blood by data Automated count Platelet 7.4 - fl Low No Apr 19 mean 10.4 informati 2016 4:15 volume on in PM [Entitic source volume] data in Blood by Automated count Platelets 142 - 424 K/mm3 Normal No Apr 19 informati 2016 4:15 [#/volume on in PM ] in source Blood data Erythrocy 4.2 - 5.4 M/mm3 Normal No Apr 19 benjy informati 2016 4:15 [#/volume on in PM ] in source Amniotic data fluid Erythrocy 11.5 - % Normal No Apr 19 te 17.5 informati 2016 4:15 distribut on in PM ion width source [Entitic data volume] by Automated count Leukocyte 4.8 - K/MM3 Normal No Apr 19 s 10.8 informati 2016 4:15 [#/volume on in PM ] in source Blood data
--- OUTSIDE RECORDS SUMMARY | 2017-09-21 12:15 | External Medical Summary Rpt | CCD ---
Demographics Preferred Language Korean Marital Status Unknown Yarsanism Affiliation Unknown Race Unknown Ethnic Group Unknown Author Author , MICHAEL RODRIGUEZ Address Unknown Phone Immunization No patient found.
--- OUTSIDE RECORDS SUMMARY | 2017-09-21 12:15 | External Medical Summary Rpt | CCD ---
Demographics Preferred Language Romanian Marital Status Unknown Taoism Affiliation Unknown Race Unknown Ethnic Group Unknown Author Author , MICHAEL RODRIGUEZ Address Unknown Phone Immunization No patient found.
--- NOTE | 2017-09-21 13:40 | Urgent Treatment Center Report ---
History of Present Issue Date/Time Seen by Provider 09/21/17 1317 Visit Reason Pt arrived:Walked Presenting Problem:PT C/O OF BACK PAIN THAT RADIATES DOWN RT LEG Location if Accident: Onset of symptoms date/time:09/18/17/ or onset unknown for:MEDICAL HX UNKNOWN Have you (or family members/close friends) recently traveled outside the [place]? N If Yes, where/when: Have you had exposure to infectious disease within the past month? TB? Other? Specify: Patient state that she has been having pain in her lower back area that radiates down her buttock into her right leg. State that she has tried to take over the counter medication but has not helped Describes pain as "achy like pain" and hurts to move, raise or bend her leg ALLERGIES Coded Allergies: No Known Allergies (09/27/16) Home Medications Reported Medications ALBUTEROL (Albuterol 0.083% Neb) 2.5 MG INH TID ISOSORBIDE MONONITRATE (Isosorbide Mononitrate ER) 150 MG PO DAILY LISINOPRIL (Lisinopril) 10 MG PO DAILY Metoprolol Tartrate (Metoprolol 25MG) 12.5 MG PO BID PRN HTN Simvastatin (Zocor) 20 MG PO DAILY Aspirin (Aspirin EC 81MG Tab) 81 MG PO DAILY Buspirone Hcl (Buspar 10MG) 10 MG PO DAILY Fluoxetine Hcl (Fluoxetine) 40 MG PO DAILY Gabapentin (Neurontin) 600 MG PO BID HYDROCODONE/ACETAMINOPHEN (LORTAB 5-325 (generic)) 1 TAB PO Q6HP PRN PAIN History Medical History General CAD? Yes Angina: Yes AL: No Hypertension? Yes Hyperlipidemia? Yes CHF? No DVT? No PE? No COPD? Yes Asthma? Yes Anemia? No GERD? Yes Gastric ulcers? No GI Bleed? No Hernia? Yes Thyroid Problems? No Hypothyroidism? No CVA? No Seizures? No Diabetes? No Insulin Dependent: No Insulin Pump: No Home FSBS? No Renal Insuffiency? No UTI? No Stones? No BPH? No GB Disease: No Nephritic Syndrome? No Asplenia? No Hepatitis? No Sickle Cell Disease? No Arthritis? Yes Migraines? Yes Cataracts? No Glaucoma? No MRSA? No HIV? No TB? No Anxiety? Yes Depression? Yes Cancer? No More? No Immunization HX DT/Tetanus 1-4 Years Ago Flu Refused Pneumonia Received In Past Surgical Hx Previous Surgery?Y HYSTERECTOMY LEFT HAND STENT PLACEMENT IN DEC 21 CARDIAC STENTS RIGHT SHOULDER ENDOSCOPY COLONOSCOPY X2 LT SHOULDER CYST REMOVED TO RIGHT NIEVES Family History Family HX Diabetes Yes CAD No Hypertension No Hyperlipidemia Yes Cancer Yes TB No Social History Smoking Hx Smoker: Current Every Day Smoker Tobacco: Yes Type Cigarettes Packs/day 1 1/2 - 2 Packs Alcohol Alcohol: No Review of Systems All Other Systems Reviewed and Negative Physical Exam Vital Signs Vital Signs Date Time Temp Pulse Resp B/P Pulse O2 O2 Flow FiO2 Ox Delivery Rate 09/21 1332 18 09/21 1259 98.6 73 18 121/76 96 General Appearance normal appearance, WD/WN, no apparent distress Respiratory Status Yes: trachea midline, chest symmetrical, non tender chest. No: respiratory distress. Lung Sounds bilateral: normal breath sounds, lungs clear. Cardiovascular normal exam, regular rate/rhythm, no peripheral edema Back Pain in lower back that radiates down into her buttock and right leg like that commonly described with sciatica. Extremities Pain in lower back that radiates down into right leg Neurologic alert, normal exam, oriented x 3 Medical Decision Making LABS/Meds/Orders Pt receiving controlled substance in ED? No Results/Orders Current Medication Orders Sig/Jim Start time Last Medication Dose Route Stop Time Status Admin Ketorolac 60 MG ONCE ONE 09/21 1330 DC 09/21 Tromethamine IM 09/21 1331 1332 Methylprednisolone 125 MG ONCE ONE 09/21 1330 DC 09/21 Sodium Succinate IM 09/21 1331 1331 Orphenadrine Citrate 60 MG ONCE ONE 09/21 1330 DC 09/21 IM 09/21 1331 1331 Methylprednisolone 0 .STK-MED ONE 09/21 1329 DC Sodium Succinate .ROUTE Ketorolac 0 .STK-MED ONE 09/21 1328 DC Tromethamine .ROUTE Orphenadrine Citrate 0 .STK-MED ONE 09/21 1328 DC .ROUTE Progress [facility] Progress Notes Comment Patient state that pain is better and she is moving leg better State that given medication helped with pain Departure Departure Time of Disposition 1402 Disposition DC Home or Self Care(routine) Clinical Impression Primary Impression: Sciatica Qualifiers: Laterality: right Qualified Code: M54.31 - Sciatica, right side Condition STABLE Referrals Lyubov CURRAN,Warren Brock (Family) Patient Instructions DI for Back Pain With Sciatica, DI for Sciatica, Sciatica Additional Instructions Follow up with family doctor for referral to physical therapy if needed Return if needed Follow up with family doctor for further treatment Take medication as prescribed Discharge Counseling Counseled pt/family regarding diagnosis, medications/RX, home care, follow up needs Prescriptions Current Visit Scripts Ibuprofen (Ibuprofen 800MG) 800 MG PO QIDP PRN pain #30 TAB Methylprednisolone (Medrol Dose Sam) 4 MG PO UD #1 SAM TAKE DIRECTED ON PACKAGING Cyclobenzaprine Hcl (Flexeril) 10 MG PO TID #15 TAB at 0810
[2017-09-21 14:03] VITALS: BP 132/88
[2017-09-21] MEDS ORDERED: FLEXERIL10 MG PO (14:03)
[2017-09-21] MEDS ORDERED: IBUPROFEN800 MG PO (14:03)
[2017-09-21] MEDS ORDERED: MEDROL 4MG. DOSE4 MG PO (14:03)
== END 2017-09-21 14:05 | disposition home or self-care (01) ==
LOC: UTC 12:06
DX: M54.31 Sciatica, right side (principal); I25.10 Atherosclerotic heart disease of native coronary artery without angina pectoris; I10 Essential (primary) hypertension; E78.5 Hyperlipidemia, unspecified; J44.9 Chronic obstructive pulmonary disease, unspecified; M19.90 Unspecified osteoarthritis, unspecified site; F41.9 Anxiety disorder, unspecified; F32.9 Major depressive disorder, single episode, unspecified; F17.210 Nicotine dependence, cigarettes, uncomplicated; Z95.5 Presence of coronary angioplasty implant and graft; Z79.82 Long term (current) use of aspirin; Z79.891 Long term (current) use of opiate analgesic; Z79.899 Other long term (current) drug therapy

== ENCOUNTER 2017-09-23 10:45 | Emergency (ER) | payer MEDICAID ==
[~2017-09-23] VITALS: Ht 160 cm; Wt 98.0 kg
[~2017-09-23 10:45] MED LIST changes: +FLEXERIL10 MG PO
[2017-09-23 11:13] LABS: HEMOGLOBIN 13.9 g/dL (12.2-16.2); LYMPH # 5.7 K/mm3 (0.7-4.5); LYMPH % 44.6 % (10-50.0)
--- OUTSIDE RECORDS SUMMARY | 2017-09-23 11:16 | External Medical Summary Rpt | CCD ---
Author Author , MICHAEL RODRIGUEZ Address Unknown Phone [email or web address] Care [email or web address] Providers Care Audio/Video Engineer Name Role Phone Dior ARAUJO Unavailable Unavailable [...] I25.10 ATHEROSCLER 03-12-2017 OTIC HEART DISEASE OF [place] CORONARY ARTERY WITHOUT ANGINA PECTORIS Z01.810 ENCOUNTER 03-12-2017 FOR PREPROCEDUR AL CARDIOVASCU LAR EXAMINATION 305.1 305.1 12-21-2013 [place] TOBACCO USE [facility] 401.9 401.9 12-21-2013 [place] HYPERTENSIO [facility] N NOS Hospital 413.9 413.9 12-21-2013 [place] ANGINA [facility] PECTORIS Hospital NEC/NOS 414.00 414.00 12-21-2013 [place] CORON [facility] ATHEROSCLER Hospital NOS TYPE VESSEL, [place] OR GRAFT 493.90 493.90 12-21-2013 [place] ASTHMA, [facility] UNSPECIFIED Hospital 496 496 CHR 12-21-2013 [place] AIRWAY [facility] OBSTRUCT Hospital NEC 780.97 780.97 12-21-2013 [place] ALTERED [facility] STATUS 272.4 272.4 09-03-2013 [place] HYPERLIPIDE [facility] RACHEAL NEC/NOS Hospital V58.69 V58.69 OTH 09-03-2013 [place] HOLDENLT,MISHEL [facility] ENT USE Hospital 843.9 843.9 07-24-2013 [place] [facility] 300.00 300.00 06-20-2013 [place] ANXIETY [facility] STATE NOS Hospital 786.50 786.50 06-20-2013 [place] CHEST PAIN [facility] Hospital 789.00 789.00 06-04-2013 [place] ABDOMINAL [facility] PAIN, Hospital UNSPECIFIED SITE 346.90 346.90 12-27-2012 [place] MIGRAINE [facility] UNSPECIFIED Hospital W/O INTRACT MGRN W/O [...] Hgb A1c Bld (05-01-2017 08:50) Comment: The [place] [employer] recommends maintenance of Hemoglobin A1C [...] Mcarthur MD (ER) 4 22:41 4 00:14 [facility] Emergency OSEAS Mcarthur MD (ER) 3 18:57 3 19:34 [facility] Emergency OSEAS Mcarthur MD (ER) 3 22:30 3 23:45 [facility] Emergency OSEAS Mcarthur MD (ER) 3 21:27 3 23:38 [facility] Emergency OSEAS RAMIREZ (ER) 3 22:[address] [facility] Emergency OSEAS Hobbs (ER) 3 15:41 3 17:24 [facility] Emergency OSEAS Mcarthur MD (ER) 3 22:31 3 23:50 [facility] Emergency OSEAS Rader (ER) 3 00:01 3 00:20 [facility]
--- OUTSIDE RECORDS SUMMARY | 2017-09-23 11:16 | External Medical Summary Rpt | CCD ---
Author Author , MICHAEL RODRIGUEZ Address Unknown Phone [email or web address] Care Team Providers Care Watershed Tender Name Role Phone Dior ARAUJO Unavailable Unavailable RICH Mcarthur MD, Unavailable Unavailable Drea RAMIREZ MD, Unavailable Unavailable SETEPHANIA Hobbs Unavailable Unavailable SWETHA CURRAN, Leonard Hobbs [...] I25.10 ATHEROSCLER 03-12-2017 OTIC HEART DISEASE OF [place] CORONARY ARTERY WITHOUT ANGINA PECTORIS Z01.810 ENCOUNTER 03-12-2017 FOR PREPROCEDUR AL CARDIOVASCU LAR EXAMINATION 305.1 305.1 12-21-2013 [place] TOBACCO USE [facility] 401.9 401.9 12-21-2013 [place] HYPERTENSIO [facility] N NOS Hospital 413.9 413.9 12-21-2013 [place] ANGINA [facility] PECTORIS Hospital NEC/NOS 414.00 414.00 12-21-2013 [place] CORON [facility] ATHEROSCLER Hospital NOS TYPE VESSEL, [place] OR GRAFT 493.90 493.90 12-21-2013 [place] ASTHMA, [facility] UNSPECIFIED Hospital 496 496 CHR 12-21-2013 [place] AIRWAY [facility] OBSTRUCT Hospital NEC 780.97 780.97 12-21-2013 [place] ALTERED [facility] STATUS 272.4 272.4 09-03-2013 [place] HYPERLIPIDE [facility] RACHEAL NEC/NOS Hospital V58.69 V58.69 OTH 09-03-2013 [place] HOLDENLT,MISHEL [facility] ENT USE Hospital 843.9 843.9 07-24-2013 [place] [facility] 300.00 300.00 06-20-2013 [place] ANXIETY [facility] STATE NOS Hospital 786.50 786.50 06-20-2013 [place] CHEST PAIN [facility] Hospital 789.00 789.00 06-04-2013 [place] ABDOMINAL [facility] PAIN, Hospital UNSPECIFIED SITE 346.90 346.90 12-27-2012 [place] MIGRAINE [facility] UNSPECIFIED Hospital W/O INTRACT MGRN W/O [...] Ac MG ti /2 ve ML [place] 00 11 0 No OM 64 -2 [...] Ac MG ti /2 ve ML AL [place] 00 02 0 No OM 64 -1 [...] Hgb A1c Bld (05-01-2017 08:50) Comment: The [place] [employer] recommends maintenance of Hemoglobin A1C [...] Mcarthur MD (ER) 4 22:41 4 00:14 [facility] Emergency OSEAS Mcarthur MD (ER) 3 18:57 3 19:34 [facility] Emergency OSEAS Mcarthur MD (ER) 3 22:30 3 23:45 [facility] Emergency OSEAS Mcarthur MD (ER) 3 21:27 3 23:38 [facility] Emergency OSEAS RAMIREZ (ER) 3 22:16 3 [facility] MOHAMED Emergency OSEAS Hobbs (ER) 3 15:41 3 17:24 [facility] Emergency OSEAS Mcarthur MD (ER) 3 22:31 3 23:50 [facility] Emergency OSEAS Rader (ER) 3 00:01 3 00:20 [facility]
--- NOTE | 2017-09-23 11:17 | Emergency Room Report ---
History of Present Illness Time Seen by [id number] Presenting Problem in Triage Pt arrived:Walked Presenting Problem:PT C/O SHARP PAIN UNDER HER LEFT BREAST IN HER RIBS THAT STARTED LAST NIGHT BUT QUIT AND THE PAIN RETURNED THIS MORNING. Onset of symptoms date/time:/ or onset unknown for:MEDICAL HX UNKNOWN Treatment Prior to Arrival: RN NEONATAL Provided by: Sepsis Risk Assessment: Temp: 99.2 B/P: 151/71 MAP: 97 Pulse: 80 Resp: 20 Recent fever? N Clinical Suspician of Infection? N Mental Status: 1 - Regular (Normal Baseline) Sepsis Risk:Low Sepsis Risk Have you (or family members/close friends) recently traveled outside the [place]? N If Yes, where/when: Have you had exposure to infectious disease within the past month? TB? Other? Specify: Source patient, RN notes reviewed, family, RN/MD Exam Limitations no limitations Comment The patient is a 8-year-old feel patient presented emergency room with chest pain, off-and-on, since last night. Pain does not seem to be triggered by activity, patient denies any shortness of breath, diaphoresis, radiation. The pain appears to be worse with deep inspiration, located in the LEFT lower ribs. Patient has any fall, any trauma, any injuries. The patient has 3 cardiac stents, least one was 2 years ago. She had a stress test this year (~ 6 months ago), and smokes 1.5 packs cigaretts /day. Her nurse advocate is Dr. Jing Prado in [place]. ALLERGIES Coded Allergies: No Known Allergies (09/27/16) Home Medications Active Scripts Ibuprofen (Ibuprofen 800MG) 800 MG PO QIDP PRN pain #30 TAB Prov: 09/21/17 Methylprednisolone (Medrol Dose Sam) 4 MG PO UD #1 SAM Prov: 09/21/17 Cyclobenzaprine Hcl (Flexeril) 10 MG PO TID #15 TAB Prov: 09/21/17 Reported Medications ALBUTEROL (Albuterol 0.083% Neb) 2.5 MG INH TID ISOSORBIDE MONONITRATE (Isosorbide Mononitrate ER) 150 MG PO DAILY LISINOPRIL (Lisinopril) 10 MG PO DAILY Metoprolol Tartrate (Metoprolol 25MG) 12.5 MG PO BID PRN HTN Simvastatin (Zocor) 20 MG PO DAILY Aspirin (Aspirin EC 81MG Tab) 81 MG PO DAILY Buspirone Hcl (Buspar 10MG) 10 MG PO DAILY Fluoxetine Hcl (Fluoxetine) 40 MG PO DAILY Gabapentin (Neurontin) 600 MG PO BID History Medical History General CAD? Yes Angina: Yes DC: No Hypertension? Yes Hyperlipidemia? Yes CHF? No DVT? No PE? No COPD? Yes Asthma? Yes Anemia? No GERD? Yes Gastric ulcers? No GI Bleed? No Hernia? Yes Thyroid Problems? No Hypothyroidism? No CVA? No Seizures? No Diabetes? No Insulin Dependent: No Insulin Pump: No Home FSBS? No Renal Insuffiency? No End Stage Renal Disease? No UTI? No Stones? No BPH? No GB Disease: No Nephritic Syndrome? No Asplenia? No Hepatitis? No Sickle Cell Disease? No Arthritis? Yes Migraines? Yes Cataracts? No Glaucoma? No MRSA? No HIV? No TB? No Anxiety? Yes Depression? Yes Cancer? No More? No Immunization Hx DT/Tetanus 1-4 Years Ago Flu Refused Pneumonia Received In Past Surgical Hx Previous Surgery?Y HYSTERECTOMY LEFT HAND STENT PLACEMENT IN DEC 21 CARDIAC STENTS RIGHT SHOULDER ENDOSCOPY COLONOSCOPY X2 LT SHOULDER CYST REMOVED TO RIGHT NIEVES Family History Family Hx Diabetes Yes CAD No Hypertension No Hyperlipidemia Yes Cancer Yes TB No Social History Smoking Hx Smoker: Current Every Day Smoker Tobacco: Yes Type Cigarettes Packs/day 1 1/2 - 2 Packs Alcohol Alcohol: No Review of Systems All Other Systems Reviewed and Negative Cardiovascular see HPI, chest pain Physical Exam Vital Signs Vital Signs Date Time Temp Pulse Resp B/P Pulse O2 O2 Flow FiO2 Ox Delivery Rate 09/23 1440 98.1 60 18 127/78 95 09/23 1302 60 18 127/78 95 09/23 1157 98.1 57 22 121/61 96 09/23 1150 18 09/23 1106 20 09/23 1049 99.2 80 24 151/71 99 General Appearance normal appearance, WD/WN, mild distress Neck normal inspection, non-tender, supple, full range of motion Respiratory Status Yes: trachea midline, chest symmetrical, non tender chest. No: respiratory distress. Lung Sounds bilateral: normal breath sounds, lungs clear. Cardiovascular normal exam, regular rate/rhythm, no peripheral edema, no gallop, no JVD, no murmur, no rub, normal peripheral pulses Gastrointestinal normal bowel sounds, normal exam, non tender, soft, no organomegaly Extremities non-tender, normal range of motion, normal inspection Neurologic alert, normal exam, oriented x 3 Mental status normal mood/affect Skin intact, normal color, warm/dry Medical Decision Making LABS/Meds/Orders Pt receiving controlled substance in ED? No Comment 1415-patient reevaluated, she appears medically stable, in no acute distress. Patient instructed to follow-up with Dr. Jing Prado, her nurse advocate, within the next 2 days, for additional outpatient workup. Results/Orders Laboratory Tests 09/23/17 1337: Creatine Kinase 76, CK-MB (CK-2) Rel Index 0.7, CK and CKMB Interp < 0.5, Troponin I < 0.02 09/23/17 1101: Amylase 57, Lipase 173, TSH 2.21, Free T4 Index 7.7, Thyroxine (T4) 9.1, T3 Uptake 34 09/23/17 1101: Sodium 139, Potassium 4.0, Chloride 103, Carbon Dioxide 30, BUN 33 H, Creatinine 1.0, Estimated Creat Clear 93, Estimated GFR (MDRD) 57 L, Glucose 89 , Calcium 9.1, Total Bilirubin 0.4, AST 13 L, ALT 18, Alkaline Phosphatase 116, Creatine Kinase 83, CK-MB (CK-2) Rel Index 0.7, CK and CKMB Interp 0.6, Troponin I < 0.02, B-Natriuretic Peptide 69, Total Protein 7.9, Albumin 3.6, Globulin 4.3 H, Albumin/Globulin Ratio 0.8 L, PT 9.8, INR 0.91, APTT 24.7, D-Dimer 640 *H, WBC 12.9 H, RBC 4.44, Hgb 13.9, Hct 41.9, MCV 94.4, RDW 13.5, Plt Count 358, MPV 7.5, Gran % 48.6, Gran # 6.2, Lymphocytes % 44.6, Monocytes % 4.5, Eosinophils % 1.9, Basophils % 0.4, Lymphocytes # 5.7 H, Monocytes # 0.6, Eosinophils # 0.2, Basophils # 0.1, PUBS MCHC 33.1, MCH 31.2 Current Medication Orders Sig/Jim Start time Last Medication Dose Route Stop Time Status Admin Iopamidol 60 ML ONCE ONE 09/23 1300 DC 09/23 IV 09/23 1301 1254 Sodium Chloride 20 ML ONCE ONE 09/23 1300 DC 09/23 IV 09/23 1301 1254 Sodium Chloride 20 ML ONCE ONE 09/23 1300 DC 09/23 IV 09/23 1301 1254 Sodium Chloride 10 ML ONCE ONE 09/23 1300 DC 09/23 IV 09/23 1301 1254 Morphine Sulfate 0 .STK-MED ONE 09/23 1146 DC .ROUTE Ondansetron HCl 0 .STK-MED ONE 09/23 1146 DC .ROUTE Morphine Sulfate 4 MG ONCE ONE 09/23 1145 DC 09/23 IV 09/23 1146 1150 Ondansetron HCl 4 MG ONCE ONE 09/23 1145 DC 09/23 IV 09/23 1146 1150 Aspirin 0 .STK-MED ONE 09/23 1109 DC .ROUTE Aspirin 0 .STK-MED ONE 09/23 1101 DC .ROUTE Ketorolac 0 .STK-MED ONE 09/23 1101 DC Tromethamine .ROUTE Ondansetron HCl 0 .STK-MED ONE 09/23 1101 DC .ROUTE Aspirin 325 MG ONCE ONE 09/23 1100 DC 09/23 PO 09/23 1101 1109 Ketorolac 30 MG ONCE ONE 09/23 1100 DC 09/23 Tromethamine IV 09/23 1101 1106 Ondansetron HCl 4 MG ONCE ONE 09/23 1100 DC 09/23 IV 09/23 1101 1105 Sodium Chloride 10 ML PRN PRN 09/23 1100 DCD 09/23 IV 09/24 1054 1254 Orders Procedure Date/time Status DIET-NOTHING BY MOUTH 09/23 D Active CARDIAC ENZYMES 09/[address] CHEST W/PE PROTOCOL REQ 09/23 1146 Complete THYROID PANEL 2 (WITH TSH) 09/23 1117 Complete LIPASE 09/23 1117 Complete AMYLASE 09/23 1117 Complete ELECTROCARDIOGRAM REQUEST 09/23 1054 Active IV SALINE LOCK 09/23 1054 Active NETWORKING ENGINEER 09/23 1054 Active PARTIAL THROMBOPLASTIN TIME 09/23 1054 Complete PROTHROMBIN TIME 09/23 1054 Complete D-DIMER 09/23 1054 Complete COMPLETE METABOLIC PANEL 09/23 1054 Complete CBC WITH AUTO DIFF 09/23 1054 Complete CARDIAC ENZYMES 09/23 1054 Complete BRAIN NATRIURETIC PEPTIDE 09/23 1054 Complete 12 LEAD [facility] 09/23 UNK Active 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 of ischemic chgs, no ectopy, normal QRS, normal CO, normal EKG, no EKG for comparison, non-spec. ST/Twave chgs, ST elevation, ST depression, LBBB, RBBB, ectopy, abnormal Q waves XRAY/CT/US XRAY/CT/US 1 XRAY chest XR interpretation by reviewed by me, discussed w/radiologist Xray Results no infiltrates, normal heart size, normal lung inflation [place] XRAY/CT/US 2 CT chest (PE protocol) CT interpretation by discussed w/radiologist CT Results no infiltrates, normal heart size, normal lung inflation betina, no PE, no aortic dissection ROSIE Score for N-Stemi/Angina ROSIE N-STEMI SCORE ROSIE N-STEMI SCORE Response Value Age of patient Less than 65 yrs 0 Number of risk factors for CAD Presence of 3 or more 1 Prior coronary artery stenosis (seen in angiography) 50% or more 1 ST-Segment deviation on ECG (>1 min) Absent 0 Prior aspirin intake ASA intake in last 7 days 1 Severe anginal chest pain No or 1 episode in 24h 0 Elevated cardiac markers(CK-MB or troponin) Absent 0 Total 3 Risk Stratification 3-4= Medium Risk Patients Departure Departure Time of Disposition 1431 Disposition DC Home or Self Care(routine) Clinical Impression Primary Impression: Chest pain Qualifiers: Chest pain type: unspecified Qualified Code: R07.9 - Chest pain, unspecified Secondary Impressions: Pleurisy Condition STABLE Referrals YANY PRADO: Tomorrow-Call Office if not better Lyubov CURRAN,Warren Brock (Family) Patient Instructions DI for Atypical Chest Pain, DI for Pleurisy Additional Instructions Please follow-up with Dr. Prado comes in the morning, if no better. For the pleurisy you can take Motrin as needed for pain. Discharge Counseling Counseled pt/family regarding diagnosis, test results, medications/RX, home care, follow up needs Comment Please follow-up with Dr. Prado comes in the morning, if no better. For the pleurisy you can take Motrin as needed for pain. ED Critical Care Critical Care No at [id number]
--- NOTE | 2017-09-23 11:17 | Emergency Room Report ---
History of Present Illness Time Seen by [id number] Presenting Problem in Triage Pt arrived:Walked Presenting Problem:PT C/O SHARP PAIN UNDER HER LEFT BREAST IN HER RIBS THAT STARTED LAST NIGHT BUT QUIT AND THE PAIN RETURNED THIS MORNING. 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 N Clinical Suspician of Infection? N Mental Status: 1 - Regular (Normal Baseline) Sepsis Risk:Low Sepsis Risk Have you (or family members/close friends) recently traveled outside the [place]? N If Yes, where/when: Have you had exposure to infectious disease within the past month? TB? Other? Specify: Source patient, RN notes reviewed, family, RN/MD Exam Limitations no limitations Comment The patient is a 8-year-old feel patient presented emergency room with chest pain, off-and-on, since last night. Pain does not seem to be triggered by activity, patient denies any shortness of breath, diaphoresis, radiation. The pain appears to be worse with deep inspiration, located in the LEFT lower ribs. Patient has any fall, any trauma, any injuries. The patient has 3 cardiac stents, least one was 2 years ago. She had a stress test this year (~ 6 months ago), and smokes 1.5 packs cigaretts /day. Her quarter backer is Dr. Jing Prado in [place]. ALLERGIES Coded Allergies: No Known Allergies (09/27/16) Home Medications Active Scripts Ibuprofen (Ibuprofen 800MG) 800 MG PO QIDP PRN pain #30 TAB Prov: 09/21/17 Methylprednisolone (Medrol Dose Sam) 4 MG PO UD #1 SAM Prov: 09/21/17 Cyclobenzaprine Hcl (Flexeril) 10 MG PO TID #15 TAB Prov: 09/21/17 Reported Medications ALBUTEROL (Albuterol 0.083% Neb) 2.5 MG INH TID ISOSORBIDE MONONITRATE (Isosorbide Mononitrate ER) 150 MG PO DAILY LISINOPRIL (Lisinopril) 10 MG PO DAILY Metoprolol Tartrate (Metoprolol 25MG) 12.5 MG PO BID PRN HTN Simvastatin (Zocor) 20 MG PO DAILY Aspirin (Aspirin EC 81MG Tab) 81 MG PO DAILY Buspirone Hcl (Buspar 10MG) 10 MG PO DAILY Fluoxetine Hcl (Fluoxetine) 40 MG PO DAILY Gabapentin (Neurontin) 600 MG PO BID History Medical History General CAD? Yes Angina: Yes MD: No Hypertension? Yes Hyperlipidemia? Yes CHF? No DVT? No PE? No COPD? Yes Asthma? Yes Anemia? No GERD? Yes Gastric ulcers? No GI Bleed? No Hernia? Yes Thyroid Problems? No Hypothyroidism? No CVA? No Seizures? No Diabetes? No Insulin Dependent: No Insulin Pump: No Home FSBS? No Renal Insuffiency? No End Stage Renal Disease? No UTI? No Stones? No BPH? No GB Disease: No Nephritic Syndrome? No Asplenia? No Hepatitis? No Sickle Cell Disease? No Arthritis? Yes Migraines? Yes Cataracts? No Glaucoma? No MRSA? No HIV? No TB? No Anxiety? Yes Depression? Yes Cancer? No More? No Immunization Hx DT/Tetanus 1-4 Years Ago Flu Refused Pneumonia Received In Past Surgical Hx Previous Surgery?Y HYSTERECTOMY LEFT HAND STENT PLACEMENT IN DEC 21 CARDIAC STENTS RIGHT SHOULDER ENDOSCOPY COLONOSCOPY X2 LT SHOULDER CYST REMOVED TO RIGHT NIEVES Family History Family Hx Diabetes Yes CAD No Hypertension No Hyperlipidemia Yes Cancer Yes TB No Social History Smoking Hx Smoker: Current Every Day Smoker Tobacco: Yes Type Cigarettes Packs/day 1 1/2 - 2 Packs Alcohol Alcohol: No Review of Systems All Other Systems Reviewed and Negative Cardiovascular see HPI, chest pain Physical Exam Vital Signs Vital Signs Date Time Temp Pulse Resp B/P Pulse O2 O2 Flow FiO2 Ox Delivery Rate 09/23 1440 98.1 60 18 127/78 95 09/23 1302 60 18 127/78 95 09/23 1157 98.1 57 22 121/61 96 09/23 1150 18 09/23 1106 20 09/23 1049 99.2 80 24 151/71 99 General Appearance normal appearance, WD/WN, mild distress Neck normal inspection, non-tender, supple, full range of motion Respiratory Status Yes: trachea midline, chest symmetrical, non tender chest. No: respiratory distress. Lung Sounds bilateral: normal breath sounds, lungs clear. Cardiovascular normal exam, regular rate/rhythm, no peripheral edema, no gallop, no JVD, no murmur, no rub, normal peripheral pulses Gastrointestinal normal bowel sounds, normal exam, non tender, soft, no organomegaly Extremities non-tender, normal range of motion, normal inspection Neurologic alert, normal exam, oriented x 3 Mental status normal mood/affect Skin intact, normal color, warm/dry Medical Decision Making LABS/Meds/Orders Pt receiving controlled substance in ED? No Comment 1415-patient reevaluated, she appears medically stable, in no acute distress. Patient instructed to follow-up with Dr. Jing Prado, her quarter backer, within the next 2 days, for additional outpatient workup. Results/Orders Laboratory Tests 09/23/17 1337: Creatine Kinase 76, CK-MB (CK-2) Rel Index 0.7, CK and CKMB Interp < 0.5, Troponin I < 0.02 09/23/17 1101: Amylase 57, Lipase 173, TSH 2.21, Free T4 Index 7.7, Thyroxine (T4) 9.1, T3 Uptake 34 09/23/17 1101: Sodium 139, Potassium 4.0, Chloride 103, Carbon Dioxide 30, BUN 33 H, Creatinine 1.0, Estimated Creat Clear 93, Estimated GFR (MDRD) 57 L, Glucose 89 , Calcium 9.1, Total Bilirubin 0.4, AST 13 L, ALT 18, Alkaline Phosphatase 116, Creatine Kinase 83, CK-MB (CK-2) Rel Index 0.7, CK and CKMB Interp 0.6, Troponin I < 0.02, B-Natriuretic Peptide 69, Total Protein 7.9, Albumin 3.6, Globulin 4.3 H, Albumin/Globulin Ratio 0.8 L, PT 9.8, INR 0.91, APTT 24.7, D-Dimer 640 *H, WBC 12.9 H, RBC 4.44, Hgb 13.9, Hct 41.9, MCV 94.4, RDW 13.5, Plt Count 358, MPV 7.5, Gran % 48.6, Gran # 6.2, Lymphocytes % 44.6, Monocytes % 4.5, Eosinophils % 1.9, Basophils % 0.4, Lymphocytes # 5.7 H, Monocytes # 0.6, Eosinophils # 0.2, Basophils # 0.1, PUBS MCHC 33.1, MCH 31.2 Current Medication Orders Sig/Jim Start time Last Medication Dose Route Stop Time Status Admin Iopamidol 60 ML ONCE ONE 09/23 1300 DC 09/23 IV 09/23 1301 1254 Sodium Chloride 20 ML ONCE ONE 09/23 1300 DC 09/23 IV 09/23 1301 1254 Sodium Chloride 20 ML ONCE ONE 09/23 1300 DC 09/23 IV 09/23 1301 1254 Sodium Chloride 10 ML ONCE ONE 09/23 1300 DC 09/23 IV 09/23 1301 1254 Morphine Sulfate 0 .STK-MED ONE 09/23 1146 DC .ROUTE Ondansetron HCl 0 .STK-MED ONE 09/23 1146 DC .ROUTE Morphine Sulfate 4 MG ONCE ONE 09/23 1145 DC 09/23 IV 09/23 1146 1150 Ondansetron HCl 4 MG ONCE ONE 09/23 1145 DC 09/23 IV 09/23 1146 1150 Aspirin 0 .STK-MED ONE 09/23 1109 DC .ROUTE Aspirin 0 .STK-MED ONE 09/23 1101 DC .ROUTE Ketorolac 0 .STK-MED ONE 09/23 1101 DC Tromethamine .ROUTE Ondansetron HCl 0 .STK-MED ONE 09/23 1101 DC .ROUTE Aspirin 325 MG ONCE ONE 09/23 1100 DC 09/23 PO 09/23 1101 1109 Ketorolac 30 MG ONCE ONE 09/23 1100 DC 09/23 Tromethamine IV 09/23 1101 1106 Ondansetron HCl 4 MG ONCE ONE 09/23 1100 DC 09/23 IV 09/23 1101 1105 Sodium Chloride 10 ML PRN PRN 09/23 1100 DCD 09/23 IV 09/24 1054 1254 Orders Procedure Date/time Status DIET-NOTHING BY MOUTH 09/23 D Active CARDIAC ENZYMES 09/[address] CHEST W/PE PROTOCOL REQ 09/23 1146 Complete THYROID PANEL 2 (WITH TSH) 09/23 1117 Complete LIPASE 09/23 1117 Complete AMYLASE 09/23 1117 Complete ELECTROCARDIOGRAM REQUEST 09/23 1054 Active IV SALINE LOCK 09/23 1054 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 of ischemic chgs, no ectopy, normal QRS, normal IA, normal EKG, no EKG for comparison, non-spec. ST/Twave chgs, ST elevation, ST depression, LBBB, RBBB, ectopy, abnormal Q waves XRAY/CT/US XRAY/CT/US 1 XRAY chest XR interpretation by reviewed by me, discussed w/radiologist Xray Results no infiltrates, normal heart size, normal lung inflation bet[place] XRAY/CT/US 2 CT chest (PE protocol) CT interpretation by discussed w/radiologist CT Results no infiltrates, normal heart size, normal lung inflation betina, no PE, no aortic dissection ROSIE Score for N-Stemi/Angina ROSIE N-STEMI SCORE ROSIE N-STEMI SCORE Response Value Age of patient Less than 65 yrs 0 Number of risk factors for CAD Presence of 3 or more 1 Prior coronary artery stenosis (seen in angiography) 50% or more 1 ST-Segment deviation on ECG (>1 min) Absent 0 Prior aspirin intake ASA intake in last 7 days 1 Severe anginal chest pain No or 1 episode in 24h 0 Elevated cardiac markers(CK-MB or troponin) Absent 0 Total 3 Risk Stratification 3-4= Medium Risk Patients Departure Departure Time of Disposition 1431 Disposition DC Home or Self Care(routine) Clinical Impression Primary Impression: Chest pain Qualifiers: Chest pain type: unspecified Qualified Code: R07.9 - Chest pain, unspecified Secondary Impressions: Pleurisy Condition STABLE Referrals YANY PRADO: Tomorrow-Call Office if not better Lyubov CURRAN,Warren Brock (Family) Patient Instructions DI for Atypical Chest Pain, DI for Pleurisy Additional Instructions Please follow-up with Dr. Prado comes in the morning, if no better. For the pleurisy you can take Motrin as needed for pain. Discharge Counseling Counseled pt/family regarding diagnosis, test results, medications/RX, home care, follow up needs Comment Please follow-up with Dr. Prado comes in the morning, if no better. For the pleurisy you can take Motrin as needed for pain. ED Critical Care Critical Care No at [id number]
--- OUTSIDE RECORDS SUMMARY | 2017-09-23 11:17 | External Medical Summary Rpt | CCD ---
Demographics Preferred Language Albanian Marital Status Unknown Tenriism Affiliation Unknown Race Unknown Ethnic Group Unknown Author Author , MICHAEL RODRIGUEZ Address Unknown Phone Immunization No patient found.
--- OUTSIDE RECORDS SUMMARY | 2017-09-23 11:17 | External Medical Summary Rpt | CCD ---
Demographics Preferred Language Yi Marital Status Unknown Temple Affiliation Unknown Race Unknown Ethnic Group Unknown Author Author , MICHAEL RODRIGUEZ Address Unknown Phone Immunization No patient found.
[2017-09-23 11:31] LABS: BUN 33 mg/dL (7-18)
[2017-09-23 11:34] LABS: GFR (ESTIMATED) 57 ML/MIN (59-)
[2017-09-23 11:53] LABS: FREE THYROXIN INDEX 7.7 ug/dl (5.93-13.13)
--- NOTE | 2017-09-23 13:24 | RADIOLOGY REPORT PS360 ---
CHEST-PORTABLE HISTORY: chest painleft chest Patient Age: 62 years: Female Ordering Physician: Tristian Rousseau MD TECHNIQUE: AP portable upright chest COMPARISON :. 06/10/2016 and 07/02/2015 portable chest November [address] CT chest. FINDINGS Stable chest. Nothing definitely acute. Mild hyperexpansion upper lung huff. Heart darren and mediastinal structures stable. No pleural effusion. No pneumothorax. IMPRESSION: Stable chest nothing definitely acute..
--- NOTE | 2017-09-23 13:27 | RADIOLOGY REPORT PS360 ---
CTA-CHEST HISTORY: LT CHEST PAIN no trauma left chest pain Patient Age: 62 years: Female Ordering Physician: Tristian Rousseau MD COMPARISON. Previous CT chest 11/13/2015. PA and lateral chest from today TECHNIQUE: Thin section Helical CT scanning performed through the chest following 60 cc [id number] followed x 40 mL normal saline.. From the since sections thickened axial images performed along with thick slabMIPP images in the sagittal coronal plane FINDINGS Good visualization of pulmonary arteries with no evidence of pulmonary embolism. Low-density contrast in the aorta but no apparent abnormalities are appreciated here. Heart. Coronary artery calcification left main, circumflex artery, versus hiatal and LAD. Likely coronary stents the first diagonal and circumflex. No pericardial effusion. Heart upper normal in size. Lungs. Similar appearance versus November 2015 chest with very subtle inhomogeneous subtle patchy groundglass character throughout lung huff bilaterally.Could reflect subtle underlying chronic interstitial pneumonitis feature. But Appears similar to [address] chest. Only note Slight additional deep dependent atelectasis along with perhaps scant additional fibrotic along the posterior aspect lower lobes bilateral.. No definitive focal pneumonia. Old granulomatous disease with a few tiny calcified granulomas bilaterally. No suspicious or significant lung nodule either right or left chest. Borderline to mild thickening of airways centrally and infrahilar areas. No pleural effusion. No pneumothorax no mediastinal or hilar adenopathy with the mild fullness of the interstitium at superior right darren is similar, stable. T-spine. No fracture or acute findings. Mild degenerative changes throughout intramarginal osteophytes Upper abdomen. The mildly low-density left adrenal appears stable reflecting underlying nonfunctioning adenoma. Likely 1.5 cm em in diameter. IMPRESSION 1. no evidence of pulmonary embolism. 2. No acute focal pneumonia. No pleural effusion. No pneumothorax 3. Suggestion modest COPD, & emphysematous changes/ Perhaps very Slight progression of atelectasis/fibrotic changes along posterior margin of the lower lobes otherwise stable chest as prior studies.. Overall No significant new findings Minimal chronic changes bilaterally again noted,. Very subtle inhomogeneous mild patchy groundglass character throughout the lung huff bilaterally, similar to previous November [address] chest. Could reflect chronic interstitial pneumonitis Borderline airway thickening.. Minor old granulomatous disease.
[2017-09-23 14:40] VITALS: BP 127/78
== END 2017-09-23 14:40 | disposition home or self-care (01) ==
LOC: ER 10:45
PROVIDERS: Emergency Medicine
DX: R07.9 Chest pain, unspecified (principal); R09.1 Pleurisy; J44.9 Chronic obstructive pulmonary disease, unspecified; E78.5 Hyperlipidemia, unspecified; I10 Essential (primary) hypertension; F17.210 Nicotine dependence, cigarettes, uncomplicated
CPT/HCPCS: J2405; Q9967

== ENCOUNTER 2017-10-21 16:46 | Emergency (ER) | payer MEDICAID ==
[~2017-10-21] VITALS: Ht 160 cm; Wt 95.7 kg
[2017-10-21 17:25] LABS: STREP SCREEN (RAPID) NEGATIVE
[2017-10-21] MEDS ORDERED: AUGMENTIN 875-1 EACH PO (18:11)
--- NOTE | 2017-10-21 18:11 | Emergency Room Report ---
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 N Clinical Suspician of Infection? Y Mental Status: 1 - Regular (Normal Baseline) Sepsis Risk:Severe Sepsis Risk Have you (or family members/close friends) recently traveled outside the [place]? N If Yes, where/when: Have you had exposure to infectious disease within the past month? TB? Other? Specify: Source patient, RN notes reviewed, RN/MD Exam Limitations no limitations Comment Patient is a 62-year-old female patient arriving to the emergency room with body aches, subjective fever, productive cough, sore throat, congestion since yesterday. Patient denies any recent travel, or exposure to sick contacts. Patient has any chest pain. ALLERGIES Coded Allergies: No Known Allergies (09/27/16) Home Medications Active Scripts Ibuprofen (Ibuprofen 800MG) 800 MG PO QIDP PRN pain #30 TAB Prov: 09/21/17 Methylprednisolone (Medrol Dose Sam) 4 MG PO UD #1 SAM Prov: 09/21/17 Cyclobenzaprine Hcl (Flexeril) 10 MG PO TID #15 TAB Prov: 09/21/17 Reported Medications ALBUTEROL (Albuterol 0.083% Neb) 2.5 MG INH TID ISOSORBIDE MONONITRATE (Isosorbide Mononitrate ER) 150 MG PO DAILY LISINOPRIL (Lisinopril) 10 MG PO DAILY Metoprolol Tartrate (Metoprolol 25MG) 12.5 MG PO BID PRN HTN Simvastatin (Zocor) 20 MG PO DAILY Aspirin (Aspirin EC 81MG Tab) 81 MG PO DAILY Buspirone Hcl (Buspar 10MG) 10 MG PO DAILY Fluoxetine Hcl (Fluoxetine) 40 MG PO DAILY Gabapentin (Neurontin) 600 MG PO BID History Medical History General CAD? Yes Angina: Yes HI: No Hypertension? Yes Hyperlipidemia? Yes CHF? No DVT? No PE? No COPD? Yes Asthma? Yes Anemia? No GERD? Yes Gastric ulcers? No GI Bleed? No Hernia? Yes Thyroid Problems? No Hypothyroidism? No CVA? No Seizures? No Diabetes? No Insulin Dependent: No Insulin Pump: No Home FSBS? No Renal Insuffiency? No End Stage Renal Disease? No UTI? No Stones? No BPH? No GB Disease: No Nephritic Syndrome? No Asplenia? No Hepatitis? No Sickle Cell Disease? No Arthritis? Yes Migraines? Yes Cataracts? No Glaucoma? No MRSA? No HIV? No TB? No Anxiety? Yes Depression? Yes Cancer? No More? No Immunization Hx DT/Tetanus 1-4 Years Ago Flu Refused Pneumonia Received In Past Surgical Hx Previous Surgery?Y HYSTERECTOMY LEFT HAND STENT PLACEMENT IN DEC 21 CARDIAC STENTS RIGHT SHOULDER ENDOSCOPY COLONOSCOPY X2 LT SHOULDER CYST REMOVED TO RIGHT NIEVES Family History Family Hx Diabetes Yes CAD No Hypertension No Hyperlipidemia Yes Cancer Yes TB No Social History Smoking Hx Smoker: Current Every Day Smoker Tobacco: Yes Type Cigarettes Packs/day 1 1/2 - 2 Packs Alcohol Alcohol: No Review of Systems All Other Systems Reviewed and Negative ENT nose discharge, throat pain. Respiratory cough, shortness of breath Physical Exam Vital Signs Vital Signs Date Time Temp Pulse Resp B/P Pulse O2 O2 Flow FiO2 Ox Delivery Rate 10/21 1839 98.3 79 20 131/73 93 10/21 1652 98.1 88 24 117/69 96 General Appearance normal appearance, WD/WN, mild distress Ear, Nose, Throat hearing grossly normal, normal pharynx, boggy nasal mucosa Respiratory Status Yes: trachea midline, chest symmetrical, non tender chest. No: respiratory distress. Lung Sounds bilateral: normal breath sounds, lungs clear. 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 No Comment 1744-patient reevaluated, appears in no acute distress. Advised patient of results obtained, need to follow-up with PCP if not better per discharge instructions. Results/Orders Laboratory Tests 10/21/17 1700: Influenza Type A Ag NOT DETECTED, Influenza Type B Ag NOT DETECTED Current Medication Orders Sig/Jim Start time Last Medication Dose Route Stop Time Status Admin Albuterol/Ipratropium 0 .STK-MED ONE 10/21 1820 DC INH Albuterol/Ipratropium 3 ML ONCE ONE 10/21 181 DC 10/21 INH 10/21 181 1823 Amoxicillin/ 500 MG ONCE ONE 10/21 1815 DC 10/21 Clavulanate Potassium PO 10/21 181 181 Methylprednisolone 80 MG ONCE ONE 10/21 1815 DC 10/21 Acetate IM 10/21 1816 181 Methylprednisolone 0 .STK-MED ONE 10/21 181 DC Acetate IM Amoxicillin/ 0 .STK-MED ONE 10/21 181 DC Clavulanate Potassium PO Orders Procedure Date/time Status RT REQUEST DUONEB 10/21 1808 Active CULTURE, THROAT 10/21 1700 Active STREP SCREEN THROAT 10/21 1656 Complete INFLUENZA A&B ANTIGENS 10/21 165 Complete XRAY/CT/US XRAY/CT/US XRAY chest XR interpretation by reviewed by me, discussed w/radiologist Xray Results no infiltrates, normal heart size, normal lung inflation betina Departure Departure Time of Disposition 180 Disposition DC Home or Self Care(routine) Clinical Impression Primary Impression: Acute bronchitis Qualifiers: Bronchitis organism: unspecified organism Qualified Code: J20.9 - Acute bronchitis, unspecified Secondary Impressions: COPD exacerbation Condition STABLE Patient Instructions DI for Acute Bronchitis, DI for Chronic Obstructive Pulmonary Disease Additional Instructions Please use your nebulized treatments every 4 hours, till better. Discharge Counseling Counseled pt/family regarding diagnosis, test results, medications/RX, home care, follow up needs Comment your nebulized treatments every 4 hours, till better. Prescriptions Current Visit Scripts Amoxicillin/Potassium Clav (Augmentin 875-125 Tablet) 1 EACH PO BID #20 TAB ED Critical Care Critical Care No at [id number]
--- NOTE | 2017-10-21 18:38 | RADIOLOGY REPORT PS360 ---
CHEST(2 VIEWS-NOT PORTABLE) Ordering Physician: Tristian Rousseau MD Patient Age: 62 years: Female HISTORY: PROD COUGHcongestion taking all over TECHNIQUE: PA and lateral chest COMPARISON :PA and lateral chest 04/19/[address] chest September 23, 2017 FINDINGS COMPARISON to 3 01/23 and 04/19/2017 chest film shows no significant new findings mild chronic changes bilaterally. Markings upper normal at the right infrahilar region but most likely stable. Nothing definitely acute. No pleural effusion No focal pneumonia. Heart darren and mediastinal structures appear similar. Coronary artery stent noted proximally to the left. Borderline generous right darren appears stable Degenerative changes T-spine appears stable. Ribs intact. IMPRESSION: Stable chest nothing definitely acute
[2017-10-21 18:39] VITALS: BP 131/73
== END 2017-10-21 18:40 | disposition home or self-care (01) ==
LOC: ER 16:46
PROVIDERS: Emergency Medicine
DX: J44.1 Chronic obstructive pulmonary disease with (acute) exacerbation (principal); J20.9 Acute bronchitis, unspecified; J44.0 Chronic obstructive pulmonary disease with (acute) lower respiratory infection; Z72.0 Tobacco use; I10 Essential (primary) hypertension; E78.5 Hyperlipidemia, unspecified; K21.9 Gastro-esophageal reflux disease without esophagitis
CPT/HCPCS: J1030